=== PATIENT | male | born 1955 | race Caucasian/White ===

== ENCOUNTER 2020-07-31 15:39 | Inpatient (IN) ==
[2020-07-31] MEDS ORDERED: Acetaminophen 325 MG TABLET PO PRN (15:45)
[2020-07-31] MEDS: Melatonin 3 MG TABLET PO SCH (20:16)
[2020-07-31] MEDS: hydrALAZINE 25 MG TABLET PO SCH (20:16)
[2020-07-31] MEDS: WHEAT DEXTRIN PO SCH (20:24)
[2020-07-31] MEDS ORDERED: Insulin DETEMIR 100 UNIT/ML per UNIT SUBQ ONE (21:00)
[2020-08-01 08:52] LABS: Basophils # 0.1 K/mcL (0.0-0.2); Basophils % 0.8 %; Eosinophils # 0.5 K/mcL (0.0-0.6); Eosinophils % 5.4 %; Hematocrit 38.2 % (37.5-50.1); Hemoglobin 12.3 g/dL (12.9-16.9); Immature Granulocytes % 0.2 % (0-4); Lymphocytes # 2.2 K/mcL (0.6-4.6); Lymphocytes % 26.3 %; Mean Corpuscular HGB Conc 32.2 g/dL (31.6-35.5); Mean Corpuscular Hemoglobin 30.7 pg (28.0-33.3); Mean Corpuscular Volume 95.3 fL (83.0-100.0); Mean Platelet Volume 9.7 fL (9.4-12.4); Monocytes # 0.7 K/mcL (0.0-1.3); Monocytes % 8.1 %; Platelet Count 249 K/mcL (140-400); Red Blood Count 4.01 M/mcL (4.19-5.50); Red Cell Distribution Width 13.5 % (11.5-14.5); Segmented Neutrophils % 59.2 %; White Blood Count 8.4 K/mcL (4.3-11.1)
[2020-08-01 09:01] LABS: INR 1.2; Prothrombin Time 13.8 Seconds (9.4-12.1)
[2020-08-01 09:18] LABS: Albumin 4.1 g/dL (3.5-5.7); Albumin/Globulin Ratio 1.1 (1.1-2.2); Bilirubin,Total 0.4 mg/dL (0.3-1.0); Calcium 9.3 mg/dL (8.6-10.3); Globulin 3.9 g/dL (2.4-3.5); Potassium 4.8 mEq/L (3.5-5.1)
[2020-08-01] MEDS: Psyllium 1 PACKET POWD.PACK PO SCH ×3 (10:19→20:49)
[2020-08-01] MEDS: NIFEdipine XL (24 HR) 30 MG TAB.ER.24 PO SCH (10:20)
[2020-08-01] MEDS: Loratadine 10 MG TABLET PO SCH (10:20)
[2020-08-01] MEDS: Vitamin B Complex/Vit C/Vit E 1 EACH TABLET PO SCH (10:20)
[2020-08-01] MEDS: Aspirin Enteric Coated 325 MG Tablet PO SCH (10:20)
[2020-08-01] MEDS: Ascorbic Acid 500 MG TABLET PO SCH (10:20)
[2020-08-01] MEDS: WHEAT DEXTRIN PO SCH (10:21)
[2020-08-01] MEDS: hydrALAZINE 25 MG TABLET PO SCH ×3 (10:21→20:45)
[2020-08-01] MEDS: LANTHANUM 750 MG PO SCH ×2 (11:29→17:42)
[2020-08-01] MEDS ORDERED: Dextrose Gel 15 GM/37.5 ML TUBE PO PRN ×2 (14:08)
[2020-08-01] MEDS ORDERED: *HR* Dextrose 50 % in Water (Vial) 50 ML VIAL IVP PRN (14:08)
[2020-08-01] MEDS ORDERED: D5% in Water 1,000 ML IVC PRN (14:08)
[2020-08-01] MEDS: Furosemide 40 MG TABLET PO SCH (17:36)
[2020-08-01] MEDS: Insulin LISPRO 300 UNITS/3 ML VIAL SUBQ SCH (17:41)
[2020-08-01] MEDS: Melatonin 3 MG TABLET PO SCH (20:46)
[2020-08-01] MEDS: Insulin DETEMIR 100 UNIT/ML X5UNITS SUBQ SCH (20:59)
[2020-08-02] MEDS: Insulin LISPRO 300 UNITS/3 ML VIAL SUBQ SCH ×3 (10:04→17:11)
[2020-08-02] MEDS: Ascorbic Acid 500 MG TABLET PO SCH (10:07)
[2020-08-02] MEDS: hydrALAZINE 25 MG TABLET PO SCH ×3 (10:07→20:46)
[2020-08-02] MEDS: NIFEdipine XL (24 HR) 30 MG TAB.ER.24 PO SCH (10:07)
[2020-08-02] MEDS: Vitamin B Complex/Vit C/Vit E 1 EACH TABLET PO SCH (10:07)
[2020-08-02] MEDS: Psyllium 1 PACKET POWD.PACK PO SCH ×3 (10:07→20:48)
[2020-08-02] MEDS: Aspirin Enteric Coated 325 MG Tablet PO SCH (10:07)
[2020-08-02] MEDS: Loratadine 10 MG TABLET PO SCH (10:07)
[2020-08-02] MEDS: LANTHANUM 750 MG PO SCH ×3 (10:08→17:09)
[2020-08-02] MEDS: Furosemide 40 MG TABLET PO SCH (16:11)
[2020-08-02] MEDS: Melatonin 3 MG TABLET PO SCH (20:46)
[2020-08-02] MEDS: Insulin DETEMIR 100 UNIT/ML X5UNITS SUBQ SCH (20:48)
[2020-08-03] MEDS: NIFEdipine XL (24 HR) 30 MG TAB.ER.24 PO SCH (08:26)
[2020-08-03] MEDS: LANTHANUM 750 MG PO SCH ×3 (08:26→16:48)
[2020-08-03] MEDS: Psyllium 1 PACKET POWD.PACK PO SCH ×4 (08:26→20:29)
[2020-08-03] MEDS: Ascorbic Acid 500 MG TABLET PO SCH (08:27)
[2020-08-03] MEDS: Loratadine 10 MG TABLET PO SCH (08:27)
[2020-08-03] MEDS: Aspirin Enteric Coated 325 MG Tablet PO SCH (08:27)
[2020-08-03] MEDS: hydrALAZINE 25 MG TABLET PO SCH ×4 (08:27→20:28)
[2020-08-03] MEDS: Vitamin B Complex/Vit C/Vit E 1 EACH TABLET PO SCH (08:27)
[2020-08-03] MEDS: Insulin LISPRO 300 UNITS/3 ML VIAL SUBQ SCH ×3 (08:30→16:45)
[2020-08-03] MEDS: Melatonin 3 MG TABLET PO SCH (20:27)
[2020-08-03] MEDS: Insulin DETEMIR 100 UNIT/ML X5UNITS SUBQ SCH (20:39)
[2020-08-04] MEDS: Insulin LISPRO 300 UNITS/3 ML VIAL SUBQ SCH ×3 (07:28→16:47)
[2020-08-04] MEDS: Aspirin Enteric Coated 325 MG Tablet PO SCH (09:00)
[2020-08-04] MEDS: NIFEdipine XL (24 HR) 30 MG TAB.ER.24 PO SCH (09:00)
[2020-08-04] MEDS: Ascorbic Acid 500 MG TABLET PO SCH (09:00)
[2020-08-04] MEDS: Loratadine 10 MG TABLET PO SCH (09:00)
[2020-08-04] MEDS: Vitamin B Complex/Vit C/Vit E 1 EACH TABLET PO SCH (09:00)
[2020-08-04] MEDS: Psyllium 1 PACKET POWD.PACK PO SCH ×3 (09:00→20:41)
[2020-08-04] MEDS: hydrALAZINE 25 MG TABLET PO SCH ×3 (09:00→20:41)
[2020-08-04] MEDS: LANTHANUM 750 MG PO SCH ×3 (09:03→16:26)
[2020-08-04] MEDS: Furosemide 40 MG TABLET PO SCH (14:28)
[2020-08-04] MEDS: Melatonin 3 MG TABLET PO SCH (20:41)
[2020-08-04] MEDS: Insulin DETEMIR 100 UNIT/ML X5UNITS SUBQ SCH (20:42)
[2020-08-04] MEDS ORDERED: Insulin LISPRO 300 UNITS/3 ML VIAL SUBQ ONE (21:00)
[2020-08-05] MEDS: Insulin LISPRO 300 UNITS/3 ML VIAL SUBQ SCH ×3 (08:24→16:51)
[2020-08-05] MEDS: Loratadine 10 MG TABLET PO SCH (08:31)
[2020-08-05] MEDS: LANTHANUM 750 MG PO SCH ×3 (08:31→16:51)
[2020-08-05] MEDS: Aspirin Enteric Coated 325 MG Tablet PO SCH (08:32)
[2020-08-05] MEDS: Vitamin B Complex/Vit C/Vit E 1 EACH TABLET PO SCH (08:32)
[2020-08-05] MEDS: Ascorbic Acid 500 MG TABLET PO SCH (08:32)
[2020-08-05] MEDS: hydrALAZINE 25 MG TABLET PO SCH ×3 (16:50→20:46)
[2020-08-05] MEDS: Psyllium 1 PACKET POWD.PACK PO SCH ×3 (16:50→20:53)
[2020-08-05] MEDS: NIFEdipine XL (24 HR) 30 MG TAB.ER.24 PO SCH (16:51)
[2020-08-05] MEDS: *HR* Heparin 5,000 UNIT/ML VIAL SQ SCH (17:35)
[2020-08-05] MEDS: Melatonin 3 MG TABLET PO SCH (20:46)
[2020-08-05] MEDS: Insulin DETEMIR 100 UNIT/ML X5UNITS SUBQ SCH (21:06)
[2020-08-06] MEDS: *HR* Heparin 5,000 UNIT/ML VIAL SQ SCH ×2 (05:34→18:17)
[2020-08-06] MEDS: Insulin LISPRO 300 UNITS/3 ML VIAL SUBQ SCH ×3 (08:42→16:01)
[2020-08-06] MEDS: LANTHANUM 750 MG PO SCH ×3 (09:12→16:01)
[2020-08-06] MEDS: Aspirin Enteric Coated 325 MG Tablet PO SCH (09:12)
[2020-08-06] MEDS: NIFEdipine XL (24 HR) 30 MG TAB.ER.24 PO SCH (09:12)
[2020-08-06] MEDS: Psyllium 1 PACKET POWD.PACK PO SCH ×3 (09:12→20:22)
[2020-08-06] MEDS: Vitamin B Complex/Vit C/Vit E 1 EACH TABLET PO SCH (09:13)
[2020-08-06] MEDS: Loratadine 10 MG TABLET PO SCH (09:13)
[2020-08-06] MEDS: hydrALAZINE 25 MG TABLET PO SCH ×3 (09:13→20:23)
[2020-08-06] MEDS: Ascorbic Acid 500 MG TABLET PO SCH (09:14)
[2020-08-06] MEDS: Furosemide 40 MG TABLET PO SCH (16:01)
[2020-08-06] MEDS: Insulin DETEMIR 100 UNIT/ML X5UNITS SUBQ SCH (20:22)
[2020-08-06] MEDS: Melatonin 3 MG TABLET PO SCH (20:23)
[2020-08-07] MEDS: *HR* Heparin 5,000 UNIT/ML VIAL SQ SCH ×2 (05:28→18:01)
[2020-08-07 05:50] LABS: Basophils % 0.5 %; Eosinophils # 0.5 K/mcL (0.0-0.6); Hematocrit 31.2 % (37.5-50.1); Hemoglobin 10.1 g/dL (12.9-16.9); Immature Granulocytes % 0.3 % (0-4); Lymphocytes # 1.8 K/mcL (0.6-4.6); Lymphocytes % 22.8 %; Mean Corpuscular HGB Conc 32.4 g/dL (31.6-35.5); Mean Corpuscular Hemoglobin 30.8 pg (28.0-33.3); Mean Corpuscular Volume 95.1 fL (83.0-100.0); Mean Platelet Volume 9.6 fL (9.4-12.4); Monocytes # 0.7 K/mcL (0.0-1.3); Monocytes % 9.4 %; Neutrophils # 4.7 K/mcL (1.6-8.9); Platelet Count 241 K/mcL (140-400); Red Blood Count 3.28 M/mcL (4.19-5.50); White Blood Count 7.8 K/mcL (4.3-11.1)
[2020-08-07 06:07] LABS: Potassium 4.5 mEq/L (3.5-5.1)
[2020-08-07] MEDS: LANTHANUM 750 MG PO SCH ×3 (08:31→16:39)
[2020-08-07] MEDS: Vitamin B Complex/Vit C/Vit E 1 EACH TABLET PO SCH (08:31)
[2020-08-07] MEDS: Ascorbic Acid 500 MG TABLET PO SCH (08:31)
[2020-08-07] MEDS: Loratadine 10 MG TABLET PO SCH (08:31)
[2020-08-07] MEDS: hydrALAZINE 25 MG TABLET PO SCH ×4 (08:31→19:32)
[2020-08-07] MEDS: Psyllium 1 PACKET POWD.PACK PO SCH ×3 (08:31→19:32)
[2020-08-07] MEDS: NIFEdipine XL (24 HR) 30 MG TAB.ER.24 PO SCH (08:31)
[2020-08-07] MEDS: Aspirin Enteric Coated 325 MG Tablet PO SCH (08:31)
[2020-08-07] MEDS: Insulin LISPRO 300 UNITS/3 ML VIAL SUBQ SCH ×3 (08:32→16:39)
[2020-08-07] MEDS: Insulin DETEMIR 100 UNIT/ML X5UNITS SUBQ SCH (19:32)
[2020-08-07] MEDS: Melatonin 3 MG TABLET PO SCH (22:34)
[2020-08-08] MEDS: *HR* Heparin 5,000 UNIT/ML VIAL SQ SCH ×2 (06:39→17:05)
[2020-08-08] MEDS: Insulin LISPRO 300 UNITS/3 ML VIAL SUBQ SCH ×3 (08:18→16:16)
[2020-08-08] MEDS: Vitamin B Complex/Vit C/Vit E 1 EACH TABLET PO SCH (08:49)
[2020-08-08] MEDS: hydrALAZINE 25 MG TABLET PO SCH ×3 (08:49→21:15)
[2020-08-08] MEDS: Psyllium 1 PACKET POWD.PACK PO SCH ×3 (08:49→21:16)
[2020-08-08] MEDS: Aspirin Enteric Coated 325 MG Tablet PO SCH (08:49)
[2020-08-08] MEDS: Loratadine 10 MG TABLET PO SCH (08:49)
[2020-08-08] MEDS: LANTHANUM 750 MG PO SCH ×3 (08:49→16:18)
[2020-08-08] MEDS: Ascorbic Acid 500 MG TABLET PO SCH (08:50)
[2020-08-08] MEDS: NIFEdipine XL (24 HR) 30 MG TAB.ER.24 PO SCH (08:50)
[2020-08-08] MEDS: Furosemide 40 MG TABLET PO SCH (15:27)
[2020-08-08] MEDS: Melatonin 3 MG TABLET PO SCH (21:15)
[2020-08-08] MEDS: Insulin DETEMIR 100 UNIT/ML X5UNITS SUBQ SCH (21:18)
[2020-08-09] MEDS: *HR* Heparin 5,000 UNIT/ML VIAL SQ SCH ×2 (05:12→17:03)
[2020-08-09] MEDS: LANTHANUM 750 MG PO SCH ×3 (08:48→16:38)
[2020-08-09] MEDS: hydrALAZINE 25 MG TABLET PO SCH ×3 (08:51→20:00)
[2020-08-09] MEDS: Loratadine 10 MG TABLET PO SCH (08:51)
[2020-08-09] MEDS: Aspirin Enteric Coated 325 MG Tablet PO SCH (08:52)
[2020-08-09] MEDS: Psyllium 1 PACKET POWD.PACK PO SCH ×3 (08:52→19:56)
[2020-08-09] MEDS: Vitamin B Complex/Vit C/Vit E 1 EACH TABLET PO SCH (08:52)
[2020-08-09] MEDS: NIFEdipine XL (24 HR) 30 MG TAB.ER.24 PO SCH (08:52)
[2020-08-09] MEDS: Insulin LISPRO 300 UNITS/3 ML VIAL SUBQ SCH ×3 (08:52→16:37)
[2020-08-09] MEDS: Ascorbic Acid 500 MG TABLET PO SCH (08:52)
[2020-08-09] MEDS: Furosemide 40 MG TABLET PO SCH (14:30)
[2020-08-09] MEDS: Melatonin 3 MG TABLET PO SCH (19:59)
[2020-08-09] MEDS: Insulin DETEMIR 100 UNIT/ML X5UNITS SUBQ SCH (20:03)
[2020-08-10] MEDS: *HR* Heparin 5,000 UNIT/ML VIAL SQ SCH ×2 (04:54→17:01)
[2020-08-10] MEDS: Insulin LISPRO 300 UNITS/3 ML VIAL SUBQ SCH ×4 (08:40→22:19)
[2020-08-10] MEDS: Aspirin Enteric Coated 325 MG Tablet PO SCH (08:46)
[2020-08-10] MEDS: Vitamin B Complex/Vit C/Vit E 1 EACH TABLET PO SCH (08:46)
[2020-08-10] MEDS: Ascorbic Acid 500 MG TABLET PO SCH (08:47)
[2020-08-10] MEDS: Loratadine 10 MG TABLET PO SCH (08:47)
[2020-08-10] MEDS: NIFEdipine XL (24 HR) 30 MG TAB.ER.24 PO SCH (08:54)
[2020-08-10] MEDS: hydrALAZINE 25 MG TABLET PO SCH ×3 (08:58→21:45)
[2020-08-10] MEDS: Psyllium 1 PACKET POWD.PACK PO SCH ×3 (08:59→21:44)
[2020-08-10] MEDS: LANTHANUM 750 MG PO SCH ×3 (09:01→16:56)
[2020-08-10] MEDS: Insulin DETEMIR 100 UNIT/ML X5UNITS SUBQ SCH (21:43)
[2020-08-10] MEDS: Melatonin 3 MG TABLET PO SCH (21:45)
[2020-08-11] MEDS: *HR* Heparin 5,000 UNIT/ML VIAL SQ SCH ×2 (05:41→17:11)
[2020-08-11] MEDS: LANTHANUM 750 MG PO SCH ×3 (08:18→16:41)
[2020-08-11] MEDS: Vitamin B Complex/Vit C/Vit E 1 EACH TABLET PO SCH (08:19)
[2020-08-11] MEDS: Psyllium 1 PACKET POWD.PACK PO SCH ×3 (08:20→20:26)
[2020-08-11] MEDS: Aspirin Enteric Coated 325 MG Tablet PO SCH (08:20)
[2020-08-11] MEDS: Ascorbic Acid 500 MG TABLET PO SCH (08:20)
[2020-08-11] MEDS: hydrALAZINE 25 MG TABLET PO SCH ×3 (08:20→20:25)
[2020-08-11] MEDS: Loratadine 10 MG TABLET PO SCH (08:20)
[2020-08-11] MEDS: NIFEdipine XL (24 HR) 30 MG TAB.ER.24 PO SCH (08:20)
[2020-08-11] MEDS: Insulin LISPRO 300 UNITS/3 ML VIAL SUBQ SCH ×4 (08:21→20:42)
[2020-08-11] MEDS: Furosemide 40 MG TABLET PO SCH (15:21)
[2020-08-11] MEDS: Melatonin 3 MG TABLET PO SCH (20:25)
[2020-08-11] MEDS: Insulin DETEMIR 100 UNIT/ML X5UNITS SUBQ SCH (20:41)
[2020-08-12] MEDS: *HR* Heparin 5,000 UNIT/ML VIAL SQ SCH ×2 (05:57→17:33)
[2020-08-12] MEDS: Insulin LISPRO 300 UNITS/3 ML VIAL SUBQ SCH ×4 (07:37→19:47)
[2020-08-12 08:44] LABS: Basophils # 0.1 K/mcL (0.0-0.2); Basophils % 0.8 %; Eosinophils # 0.7 K/mcL (0.0-0.6); Eosinophils % 8.1 %; Hematocrit 33.3 % (37.5-50.1); Hemoglobin 10.6 g/dL (12.9-16.9); Immature Granulocytes % 0.3 % (0-4); Lymphocytes # 1.8 K/mcL (0.6-4.6); Lymphocytes % 22.5 %; Mean Corpuscular HGB Conc 31.8 g/dL (31.6-35.5); Mean Corpuscular Hemoglobin 30.5 pg (28.0-33.3); Mean Corpuscular Volume 95.7 fL (83.0-100.0); Mean Platelet Volume 9.6 fL (9.4-12.4); Monocytes # 0.6 K/mcL (0.0-1.3); Monocytes % 7.4 %; Neutrophils # 4.9 K/mcL (1.6-8.9); Platelet Count 261 K/mcL (140-400); Red Blood Count 3.48 M/mcL (4.19-5.50); Red Cell Distribution Width 13.2 % (11.5-14.5); Segmented Neutrophils % 60.9 %
[2020-08-12 08:57] LABS: Albumin 3.8 g/dL (3.5-5.7); Albumin/Globulin Ratio 1.1 (1.1-2.2); Bilirubin,Total 0.3 mg/dL (0.3-1.0); Calcium 9.6 mg/dL (8.6-10.3); Globulin 3.5 g/dL (2.4-3.5); Potassium 5.6 mEq/L (3.5-5.1); Total Protein 7.3 g/dL (6.4-8.9)
[2020-08-12] MEDS: Loratadine 10 MG TABLET PO SCH (09:00)
[2020-08-12] MEDS: Aspirin Enteric Coated 325 MG Tablet PO SCH (09:00)
[2020-08-12] MEDS: Psyllium 1 PACKET POWD.PACK PO SCH ×2 (09:01→17:34)
[2020-08-12] MEDS: Ascorbic Acid 500 MG TABLET PO SCH (09:01)
[2020-08-12] MEDS: NIFEdipine XL (24 HR) 30 MG TAB.ER.24 PO SCH (09:01)
[2020-08-12] MEDS: hydrALAZINE 25 MG TABLET PO SCH ×3 (09:01→19:46)
[2020-08-12] MEDS: LANTHANUM 750 MG PO SCH ×3 (09:01→17:34)
[2020-08-12] MEDS: Vitamin B Complex/Vit C/Vit E 1 EACH TABLET PO SCH (09:03)
[2020-08-12] MEDS: calcium polycarbophiL 625 MG TABLET PO SCH (19:46)
[2020-08-12] MEDS: Melatonin 3 MG TABLET PO SCH (19:47)
[2020-08-12] MEDS: Insulin DETEMIR 100 UNIT/ML X5UNITS SUBQ SCH (19:53)
[2020-08-13] MEDS: *HR* Heparin 5,000 UNIT/ML VIAL SQ SCH (06:19)
[2020-08-13 07:48] VITALS: BP 120/72
[2020-08-13] MEDS: Insulin LISPRO 300 UNITS/3 ML VIAL SUBQ SCH ×2 (08:32→12:31)
[2020-08-13] MEDS: Ascorbic Acid 500 MG TABLET PO SCH (08:36)
[2020-08-13] MEDS: LANTHANUM 750 MG PO SCH ×2 (08:36→12:42)
[2020-08-13] MEDS: NIFEdipine XL (24 HR) 30 MG TAB.ER.24 PO SCH (08:36)
[2020-08-13] MEDS: calcium polycarbophiL 625 MG TABLET PO SCH (08:36)
[2020-08-13] MEDS: Vitamin B Complex/Vit C/Vit E 1 EACH TABLET PO SCH (08:36)
[2020-08-13] MEDS: Aspirin Enteric Coated 325 MG Tablet PO SCH (08:36)
[2020-08-13] MEDS: Loratadine 10 MG TABLET PO SCH (08:37)
[2020-08-13] MEDS: hydrALAZINE 25 MG TABLET PO SCH (08:37)
== END 2020-08-13 14:57 | disposition home health service (06) | DRG 56 ==
LOC: INPPIK 18:29
PROVIDERS: ADMIT Family Medicine; ATTEND Family Medicine

== ENCOUNTER 2020-08-29 08:00 | Inpatient (IN) ==
[2020-08-29] MEDS ORDERED: Dextrose Gel 15 GM/37.5 ML TUBE PO PRN ×2 (13:33)
[2020-08-29] MEDS ORDERED: D5% in Water 1,000 ML IVC PRN (13:33)
[2020-08-29] MEDS ORDERED: *HR* Dextrose 50 % in Water (Vial) 50 ML VIAL IVP PRN (13:33)
[2020-08-29] MEDS: hydrALAZINE 25 MG TABLET PO SCH ×2 (14:45→20:55)
[2020-08-29] MEDS: Psyllium 1 PACKET POWD.PACK PO SCH ×2 (14:51→20:55)
[2020-08-29] MEDS: Insulin LISPRO 300 UNITS/3 ML VIAL SUBQ SCH ×2 (17:21→20:57)
[2020-08-29] MEDS: Melatonin 3 MG TABLET PO SCH (20:54)
[2020-08-29] MEDS: Insulin DETEMIR 100 UNIT/ML X5UNITS SUBQ SCH (20:56)
[2020-08-30 07:13] LABS: Basophils # 0.1 K/mcL (0.0-0.2); Basophils % 0.8 %; Eosinophils # 0.8 K/mcL (0.0-0.6); Eosinophils % 10.3 %; Hematocrit 34.2 % (37.5-50.1); Hemoglobin 11.1 g/dL (12.9-16.9); Immature Granulocytes % 0.3 % (0-4); Lymphocytes % 27.7 %; Mean Corpuscular HGB Conc 32.5 g/dL (31.6-35.5); Mean Corpuscular Hemoglobin 30.9 pg (28.0-33.3); Mean Corpuscular Volume 95.3 fL (83.0-100.0); Monocytes # 0.6 K/mcL (0.0-1.3); Monocytes % 7.7 %; Neutrophils # 3.9 K/mcL (1.6-8.9); Platelet Count 212 K/mcL (140-400); Red Blood Count 3.59 M/mcL (4.19-5.50); Segmented Neutrophils % 53.2 %; White Blood Count 7.3 K/mcL (4.3-11.1)
[2020-08-30 07:40] LABS: Calcium 9.4 mg/dL (8.6-10.3); Potassium 5.3 mEq/L (3.5-5.1)
[2020-08-30] MEDS: Insulin LISPRO 300 UNITS/3 ML VIAL SUBQ SCH ×4 (07:45→21:11)
[2020-08-30] MEDS: hydrALAZINE 25 MG TABLET PO SCH ×3 (08:05→21:10)
[2020-08-30] MEDS: Renal Vitamin 1 CAP CAPSULE PO SCH (08:06)
[2020-08-30] MEDS: Loratadine 10 MG TABLET PO SCH (08:06)
[2020-08-30] MEDS: Psyllium 1 PACKET POWD.PACK PO SCH ×3 (08:06→21:09)
[2020-08-30] MEDS: NIFEdipine XL (24 HR) 30 MG TAB.ER.24 PO SCH (08:06)
[2020-08-30] MEDS: Aspirin Enteric Coated 325 MG Tablet PO SCH (08:06)
[2020-08-30] MEDS: Ascorbic Acid 500 MG TABLET PO SCH (08:06)
[2020-08-30] MEDS: Furosemide 40 MG TABLET PO SCH (08:11)
[2020-08-30] MEDS: Insulin DETEMIR 100 UNIT/ML X5UNITS SUBQ SCH (21:09)
[2020-08-30] MEDS: Melatonin 3 MG TABLET PO SCH (21:10)
[2020-08-31] MEDS: hydrALAZINE 25 MG TABLET PO SCH ×3 (08:03→21:39)
[2020-08-31] MEDS: Renal Vitamin 1 CAP CAPSULE PO SCH (08:03)
[2020-08-31] MEDS: Aspirin Enteric Coated 325 MG Tablet PO SCH (08:04)
[2020-08-31] MEDS: NIFEdipine XL (24 HR) 30 MG TAB.ER.24 PO SCH (08:05)
[2020-08-31] MEDS: Ascorbic Acid 500 MG TABLET PO SCH (08:06)
[2020-08-31] MEDS: Loratadine 10 MG TABLET PO SCH (08:06)
[2020-08-31] MEDS: Insulin LISPRO 300 UNITS/3 ML VIAL SUBQ SCH ×4 (08:09→21:39)
[2020-08-31] MEDS: Psyllium 1 PACKET POWD.PACK PO SCH ×3 (08:10→22:08)
[2020-08-31] MEDS: Melatonin 3 MG TABLET PO SCH (21:39)
[2020-08-31] MEDS: Insulin DETEMIR 100 UNIT/ML X5UNITS SUBQ SCH (21:41)
[2020-09-01] MEDS: Furosemide 40 MG TABLET PO SCH (08:36)
[2020-09-01] MEDS: Psyllium 1 PACKET POWD.PACK PO SCH ×3 (08:36→20:15)
[2020-09-01] MEDS: Renal Vitamin 1 CAP CAPSULE PO SCH (08:36)
[2020-09-01] MEDS: hydrALAZINE 25 MG TABLET PO SCH ×3 (08:36→20:14)
[2020-09-01] MEDS: Loratadine 10 MG TABLET PO SCH (08:37)
[2020-09-01] MEDS: Ascorbic Acid 500 MG TABLET PO SCH (08:37)
[2020-09-01] MEDS: NIFEdipine XL (24 HR) 30 MG TAB.ER.24 PO SCH (08:37)
[2020-09-01] MEDS: Insulin LISPRO 300 UNITS/3 ML VIAL SUBQ SCH ×4 (08:37→20:15)
[2020-09-01] MEDS: Aspirin Enteric Coated 325 MG Tablet PO SCH (08:37)
[2020-09-01] MEDS: Melatonin 3 MG TABLET PO SCH (20:15)
[2020-09-01] MEDS: Insulin DETEMIR 100 UNIT/ML X5UNITS SUBQ SCH (20:15)
[2020-09-02] MEDS: Acetaminophen 325 MG TABLET PO PRN ×2 (01:36→20:57)
[2020-09-02] MEDS: Ascorbic Acid 500 MG TABLET PO SCH (08:29)
[2020-09-02] MEDS: Loratadine 10 MG TABLET PO SCH (08:29)
[2020-09-02] MEDS: Psyllium 1 PACKET POWD.PACK PO SCH ×3 (08:29→21:12)
[2020-09-02] MEDS: Renal Vitamin 1 CAP CAPSULE PO SCH (08:29)
[2020-09-02] MEDS: hydrALAZINE 25 MG TABLET PO SCH ×3 (08:30→21:13)
[2020-09-02] MEDS: NIFEdipine XL (24 HR) 30 MG TAB.ER.24 PO SCH (08:30)
[2020-09-02] MEDS: Aspirin Enteric Coated 325 MG Tablet PO SCH (08:31)
[2020-09-02] MEDS: Insulin LISPRO 300 UNITS/3 ML VIAL SUBQ SCH ×4 (08:49→21:12)
[2020-09-02] MEDS: Melatonin 3 MG TABLET PO SCH (20:57)
[2020-09-02] MEDS: Insulin DETEMIR 100 UNIT/ML X5UNITS SUBQ SCH (20:58)
[2020-09-03] MEDS: Insulin LISPRO 300 UNITS/3 ML VIAL SUBQ SCH ×4 (08:28→20:14)
[2020-09-03] MEDS: Aspirin Enteric Coated 325 MG Tablet PO SCH (08:39)
[2020-09-03] MEDS: Ascorbic Acid 500 MG TABLET PO SCH (08:39)
[2020-09-03] MEDS: Loratadine 10 MG TABLET PO SCH (08:39)
[2020-09-03] MEDS: hydrALAZINE 25 MG TABLET PO SCH ×3 (08:39→20:03)
[2020-09-03] MEDS: Renal Vitamin 1 CAP CAPSULE PO SCH (08:39)
[2020-09-03] MEDS: NIFEdipine XL (24 HR) 30 MG TAB.ER.24 PO SCH (08:39)
[2020-09-03] MEDS: Furosemide 40 MG TABLET PO SCH (08:41)
[2020-09-03] MEDS: Psyllium 1 PACKET POWD.PACK PO SCH ×3 (08:57→20:04)
[2020-09-03] MEDS: Melatonin 3 MG TABLET PO SCH (20:03)
[2020-09-03] MEDS: Insulin DETEMIR 100 UNIT/ML X5UNITS SUBQ SCH (20:05)
[2020-09-04 08:11] LABS: Basophils % 0.5 %; Eosinophils # 0.6 K/mcL (0.0-0.6); Eosinophils % 7.4 %; Hematocrit 30.1 % (37.5-50.1); Hemoglobin 9.8 g/dL (12.9-16.9); Immature Granulocytes % 0.4 % (0-4); Lymphocytes # 1.7 K/mcL (0.6-4.6); Lymphocytes % 21.4 %; Mean Corpuscular HGB Conc 32.6 g/dL (31.6-35.5); Mean Corpuscular Hemoglobin 31.1 pg (28.0-33.3); Mean Corpuscular Volume 95.6 fL (83.0-100.0); Mean Platelet Volume 10.1 fL (9.4-12.4); Monocytes # 0.7 K/mcL (0.0-1.3); Monocytes % 9.3 %; Neutrophils # 4.8 K/mcL (1.6-8.9); Platelet Count 239 K/mcL (140-400); Red Blood Count 3.15 M/mcL (4.19-5.50); Red Cell Distribution Width 12.7 % (11.5-14.5); White Blood Count 7.9 K/mcL (4.3-11.1)
[2020-09-04 08:32] LABS: Calcium 9.3 mg/dL (8.6-10.3); Potassium 5.5 mEq/L (3.5-5.1)
[2020-09-04] MEDS: Insulin LISPRO 300 UNITS/3 ML VIAL SUBQ SCH ×4 (08:50→21:05)
[2020-09-04] MEDS: Psyllium 1 PACKET POWD.PACK PO SCH ×3 (09:09→21:00)
[2020-09-04] MEDS: Aspirin Enteric Coated 325 MG Tablet PO SCH (09:09)
[2020-09-04] MEDS: hydrALAZINE 25 MG TABLET PO SCH ×3 (09:09→21:00)
[2020-09-04] MEDS: NIFEdipine XL (24 HR) 30 MG TAB.ER.24 PO SCH (09:09)
[2020-09-04] MEDS: Loratadine 10 MG TABLET PO SCH (09:09)
[2020-09-04] MEDS: Ascorbic Acid 500 MG TABLET PO SCH (09:09)
[2020-09-04] MEDS: Renal Vitamin 1 CAP CAPSULE PO SCH (09:09)
[2020-09-04] MEDS: Melatonin 3 MG TABLET PO SCH (21:00)
[2020-09-04] MEDS: Insulin DETEMIR 100 UNIT/ML X5UNITS SUBQ SCH (21:13)
[2020-09-05] MEDS: Insulin LISPRO 300 UNITS/3 ML VIAL SUBQ SCH ×4 (08:39→20:30)
[2020-09-05] MEDS: Psyllium 1 PACKET POWD.PACK PO SCH ×3 (08:40→20:30)
[2020-09-05] MEDS: hydrALAZINE 25 MG TABLET PO SCH ×3 (08:40→20:29)
[2020-09-05] MEDS: Renal Vitamin 1 CAP CAPSULE PO SCH (08:40)
[2020-09-05] MEDS: Furosemide 40 MG TABLET PO SCH (08:40)
[2020-09-05] MEDS: Aspirin Enteric Coated 325 MG Tablet PO SCH (08:40)
[2020-09-05] MEDS: Loratadine 10 MG TABLET PO SCH (08:40)
[2020-09-05] MEDS: Ascorbic Acid 500 MG TABLET PO SCH (08:40)
[2020-09-05] MEDS: NIFEdipine XL (24 HR) 30 MG TAB.ER.24 PO SCH (08:40)
[2020-09-05] MEDS: Melatonin 3 MG TABLET PO SCH (20:29)
[2020-09-05] MEDS: Insulin DETEMIR 100 UNIT/ML X5UNITS SUBQ SCH (20:31)
[2020-09-06 07:50] LABS: Calcium 9.3 mg/dL (8.6-10.3); Potassium 5.2 mEq/L (3.5-5.1)
[2020-09-06] MEDS: Insulin LISPRO 300 UNITS/3 ML VIAL SUBQ SCH ×4 (08:53→21:28)
[2020-09-06] MEDS: Ascorbic Acid 500 MG TABLET PO SCH (08:54)
[2020-09-06] MEDS: Loratadine 10 MG TABLET PO SCH (08:54)
[2020-09-06] MEDS: Renal Vitamin 1 CAP CAPSULE PO SCH (08:54)
[2020-09-06] MEDS: NIFEdipine XL (24 HR) 30 MG TAB.ER.24 PO SCH (08:54)
[2020-09-06] MEDS: Aspirin Enteric Coated 325 MG Tablet PO SCH (08:54)
[2020-09-06] MEDS: hydrALAZINE 25 MG TABLET PO SCH ×3 (08:55→21:14)
[2020-09-06] MEDS: Psyllium 1 PACKET POWD.PACK PO SCH ×3 (08:55→21:28)
[2020-09-06] MEDS: Furosemide 40 MG TABLET PO SCH (11:37)
[2020-09-06] MEDS: Melatonin 3 MG TABLET PO SCH (21:14)
[2020-09-06] MEDS: Insulin DETEMIR 100 UNIT/ML X5UNITS SUBQ SCH (21:15)
[2020-09-07] MEDS: Insulin LISPRO 300 UNITS/3 ML VIAL SUBQ SCH ×4 (07:30→21:11)
[2020-09-07] MEDS: Psyllium 1 PACKET POWD.PACK PO SCH ×3 (08:17→21:12)
[2020-09-07] MEDS: Renal Vitamin 1 CAP CAPSULE PO SCH (08:18)
[2020-09-07] MEDS: Ascorbic Acid 500 MG TABLET PO SCH (08:18)
[2020-09-07] MEDS: Aspirin Enteric Coated 325 MG Tablet PO SCH (08:18)
[2020-09-07] MEDS: Loratadine 10 MG TABLET PO SCH (08:18)
[2020-09-07] MEDS: hydrALAZINE 25 MG TABLET PO SCH ×3 (08:19→21:10)
[2020-09-07] MEDS: NIFEdipine XL (24 HR) 30 MG TAB.ER.24 PO SCH (08:20)
[2020-09-07] MEDS: Melatonin 3 MG TABLET PO SCH (21:11)
[2020-09-07] MEDS: Insulin DETEMIR 100 UNIT/ML X5UNITS SUBQ SCH (21:11)
[2020-09-08] MEDS: Insulin LISPRO 300 UNITS/3 ML VIAL SUBQ SCH ×4 (07:23→20:20)
[2020-09-08] MEDS: Renal Vitamin 1 CAP CAPSULE PO SCH (09:07)
[2020-09-08] MEDS: Ascorbic Acid 500 MG TABLET PO SCH (09:07)
[2020-09-08] MEDS: Aspirin Enteric Coated 325 MG Tablet PO SCH (09:07)
[2020-09-08] MEDS: NIFEdipine XL (24 HR) 30 MG TAB.ER.24 PO SCH (09:07)
[2020-09-08] MEDS: hydrALAZINE 25 MG TABLET PO SCH ×3 (09:07→20:17)
[2020-09-08] MEDS: Loratadine 10 MG TABLET PO SCH (09:07)
[2020-09-08] MEDS: Furosemide 40 MG TABLET PO SCH (09:08)
[2020-09-08] MEDS: Psyllium 1 PACKET POWD.PACK PO SCH ×3 (09:09→20:20)
[2020-09-08] MEDS: Melatonin 3 MG TABLET PO SCH (20:17)
[2020-09-08] MEDS: Insulin DETEMIR 100 UNIT/ML X5UNITS SUBQ SCH (20:18)
[2020-09-09] MEDS: Insulin LISPRO 300 UNITS/3 ML VIAL SUBQ SCH ×4 (07:52→21:29)
[2020-09-09] MEDS: hydrALAZINE 25 MG TABLET PO SCH ×3 (08:47→21:11)
[2020-09-09] MEDS: NIFEdipine XL (24 HR) 30 MG TAB.ER.24 PO SCH (08:47)
[2020-09-09] MEDS: Psyllium 1 PACKET POWD.PACK PO SCH ×3 (08:48→21:12)
[2020-09-09] MEDS: Loratadine 10 MG TABLET PO SCH (08:51)
[2020-09-09] MEDS: Ascorbic Acid 500 MG TABLET PO SCH (08:51)
[2020-09-09] MEDS: Aspirin Enteric Coated 325 MG Tablet PO SCH (08:51)
[2020-09-09] MEDS: Renal Vitamin 1 CAP CAPSULE PO SCH (08:52)
[2020-09-09] MEDS: Melatonin 3 MG TABLET PO SCH (21:11)
[2020-09-09] MEDS: Insulin DETEMIR 100 UNIT/ML X5UNITS SUBQ SCH (21:12)
[2020-09-10] MEDS: Psyllium 1 PACKET POWD.PACK PO SCH ×3 (08:23→22:02)
[2020-09-10] MEDS: NIFEdipine XL (24 HR) 30 MG TAB.ER.24 PO SCH (08:23)
[2020-09-10] MEDS: Renal Vitamin 1 CAP CAPSULE PO SCH (08:23)
[2020-09-10] MEDS: Aspirin Enteric Coated 325 MG Tablet PO SCH (08:23)
[2020-09-10] MEDS: Ascorbic Acid 500 MG TABLET PO SCH (08:24)
[2020-09-10] MEDS: hydrALAZINE 25 MG TABLET PO SCH ×3 (08:24→22:02)
[2020-09-10] MEDS: Loratadine 10 MG TABLET PO SCH (08:24)
[2020-09-10] MEDS: Insulin LISPRO 300 UNITS/3 ML VIAL SUBQ SCH ×4 (08:24→22:13)
[2020-09-10] MEDS: Furosemide 40 MG TABLET PO SCH (08:25)
[2020-09-10] MEDS: Melatonin 3 MG TABLET PO SCH (22:02)
[2020-09-10] MEDS: Insulin DETEMIR 100 UNIT/ML X5UNITS SUBQ SCH (22:21)
[2020-09-11] MEDS: hydrALAZINE 25 MG TABLET PO SCH ×3 (08:39→21:04)
[2020-09-11] MEDS: Aspirin Enteric Coated 325 MG Tablet PO SCH (08:39)
[2020-09-11] MEDS: Psyllium 1 PACKET POWD.PACK PO SCH ×3 (08:39→21:05)
[2020-09-11] MEDS: NIFEdipine XL (24 HR) 30 MG TAB.ER.24 PO SCH (08:39)
[2020-09-11] MEDS: Insulin LISPRO 300 UNITS/3 ML VIAL SUBQ SCH ×4 (08:40→21:00)
[2020-09-11] MEDS: Renal Vitamin 1 CAP CAPSULE PO SCH (08:40)
[2020-09-11] MEDS: Ascorbic Acid 500 MG TABLET PO SCH (08:40)
[2020-09-11] MEDS: Loratadine 10 MG TABLET PO SCH (08:40)
[2020-09-11] MEDS: Melatonin 3 MG TABLET PO SCH (21:04)
[2020-09-11] MEDS: Insulin DETEMIR 100 UNIT/ML X5UNITS SUBQ SCH (21:12)
[2020-09-12 06:52] VITALS: BP 167/66
[2020-09-12] MEDS: Insulin LISPRO 300 UNITS/3 ML VIAL SUBQ SCH ×2 (07:52→11:59)
[2020-09-12] MEDS: NIFEdipine XL (24 HR) 30 MG TAB.ER.24 PO SCH (08:46)
[2020-09-12] MEDS: hydrALAZINE 25 MG TABLET PO SCH (08:46)
[2020-09-12] MEDS: Loratadine 10 MG TABLET PO SCH (08:46)
[2020-09-12] MEDS: Aspirin Enteric Coated 325 MG Tablet PO SCH (08:46)
[2020-09-12] MEDS: Ascorbic Acid 500 MG TABLET PO SCH (08:47)
[2020-09-12] MEDS: Renal Vitamin 1 CAP CAPSULE PO SCH (08:47)
[2020-09-12] MEDS: Furosemide 40 MG TABLET PO SCH (08:47)
[2020-09-12] MEDS: Psyllium 1 PACKET POWD.PACK PO SCH (08:47)
== END 2020-09-12 12:35 | disposition home health service (06) | DRG 56 ==
LOC: INPPIK 12:27
PROVIDERS: ADMIT Family Medicine; ATTEND Family Medicine

== ENCOUNTER 2021-07-17 18:50 | Inpatient (IN) ==
[2021-07-17] MEDS: hydrALAZINE 25 MG TABLET PO SCH (23:27)
[2021-07-17] MEDS: Melatonin 3 MG TABLET PO SCH (23:27)
[2021-07-17] MEDS: metroNIDAZOLE 500 MG TABLET PO SCH (23:28)
[2021-07-17] MEDS: Folic Acid 1 MG TABLET PO SCH (23:28)
[2021-07-18 07:35] LABS: Basophils # 0.1 K/mcL (0.0-0.2); Basophils % 0.5 %; Eosinophils # 0.5 K/mcL (0.0-0.6); Eosinophils % 3.8 %; Hematocrit 31.2 % (37.5-50.1); Hemoglobin 9.6 g/dL (12.9-16.9); Immature Granulocytes % 1.3 % (0-4); Lymphocytes # 2.3 K/mcL (0.6-4.6); Lymphocytes % 16.8 %; Mean Corpuscular HGB Conc 30.8 g/dL (31.6-35.5); Mean Corpuscular Hemoglobin 29.9 pg (28.0-33.3); Mean Corpuscular Volume 97.2 fL (83.0-100.0); Monocytes # 0.9 K/mcL (0.0-1.3); Monocytes % 6.8 %; Neutrophils # 9.6 K/mcL (1.6-8.9); Platelet Count 338 K/mcL (140-400); Red Blood Count 3.21 M/mcL (4.19-5.50); Red Cell Distribution Width 12.5 % (11.5-14.5); Segmented Neutrophils % 70.8 %; White Blood Count 13.6 K/mcL (4.3-11.1)
[2021-07-18 07:53] LABS: Calcium 8.9 mg/dL (8.6-10.3); Potassium 4.6 mEq/L (3.5-5.1)
[2021-07-18] MEDS: Folic Acid 1 MG TABLET PO SCH ×2 (10:11→21:15)
[2021-07-18] MEDS: Renal Vitamin 1 CAP CAPSULE PO SCH (10:11)
[2021-07-18] MEDS: Ascorbic Acid 500 MG TABLET PO SCH (10:11)
[2021-07-18] MEDS: metroNIDAZOLE 500 MG TABLET PO SCH ×3 (10:11→21:15)
[2021-07-18] MEDS: Aspirin Enteric Coated 325 MG Tablet PO SCH (10:11)
[2021-07-18] MEDS: hydrALAZINE 25 MG TABLET PO SCH ×3 (10:11→21:15)
[2021-07-18] MEDS: Loratadine 10 MG TABLET PO SCH (10:11)
[2021-07-18] MEDS: Furosemide 40 MG TABLET PO SCH (10:20)
[2021-07-18] MEDS ORDERED: D5% in Water 1,000 ML IVC PRN (17:03)
[2021-07-18] MEDS ORDERED: *HR* Dextrose 50 % in Water (Syg) 50 ML SYRINGE IVP PRN (17:03)
[2021-07-18] MEDS ORDERED: Dextrose Gel 15 GM/37.5 ML TUBE PO PRN ×2 (17:03)
[2021-07-18] MEDS: Insulin DETEMIR 100 UNIT/ML X5UNITS SUBQ SCH (21:15)
[2021-07-18] MEDS: Insulin LISPRO 300 UNITS/3 ML VIAL SUBQ SCH (21:15)
[2021-07-18] MEDS: Melatonin 3 MG TABLET PO SCH (21:15)
[2021-07-19] MEDS: metroNIDAZOLE 500 MG TABLET PO SCH ×3 (09:02→20:27)
[2021-07-19] MEDS: Renal Vitamin 1 CAP CAPSULE PO SCH (09:02)
[2021-07-19] MEDS: Ascorbic Acid 500 MG TABLET PO SCH (09:02)
[2021-07-19] MEDS: Insulin LISPRO 300 UNITS/3 ML VIAL SUBQ SCH ×4 (09:02→20:29)
[2021-07-19] MEDS: Loratadine 10 MG TABLET PO SCH (09:03)
[2021-07-19] MEDS: hydrALAZINE 25 MG TABLET PO SCH ×3 (09:03→20:27)
[2021-07-19] MEDS: Aspirin Enteric Coated 325 MG Tablet PO SCH (09:03)
[2021-07-19] MEDS: Folic Acid 1 MG TABLET PO SCH ×2 (09:03→20:27)
[2021-07-19] MEDS: Acetaminophen 325 MG TABLET PO PRN (17:35)
[2021-07-19] MEDS: Melatonin 3 MG TABLET PO SCH (20:28)
[2021-07-19] MEDS: Insulin DETEMIR 100 UNIT/ML X5UNITS SUBQ SCH (20:28)
[2021-07-20] MEDS: Ascorbic Acid 500 MG TABLET PO SCH (07:55)
[2021-07-20] MEDS: hydrALAZINE 25 MG TABLET PO SCH ×3 (07:55→21:04)
[2021-07-20] MEDS: Insulin LISPRO 300 UNITS/3 ML VIAL SUBQ SCH ×4 (07:55→21:04)
[2021-07-20] MEDS: Folic Acid 1 MG TABLET PO SCH ×2 (07:55→21:03)
[2021-07-20] MEDS: Aspirin Enteric Coated 325 MG Tablet PO SCH (07:55)
[2021-07-20] MEDS: Loratadine 10 MG TABLET PO SCH (07:55)
[2021-07-20] MEDS: metroNIDAZOLE 500 MG TABLET PO SCH ×3 (07:55→21:04)
[2021-07-20] MEDS: Renal Vitamin 1 CAP CAPSULE PO SCH (07:55)
[2021-07-20] MEDS: Furosemide 40 MG TABLET PO SCH (07:59)
[2021-07-20] MEDS: Melatonin 3 MG TABLET PO SCH (21:04)
[2021-07-20] MEDS: Insulin DETEMIR 100 UNIT/ML X5UNITS SUBQ SCH (21:05)
[2021-07-21] MEDS: Renal Vitamin 1 CAP CAPSULE PO SCH (08:25)
[2021-07-21] MEDS: Folic Acid 1 MG TABLET PO SCH ×2 (08:25→21:38)
[2021-07-21] MEDS: metroNIDAZOLE 500 MG TABLET PO SCH ×3 (08:25→21:38)
[2021-07-21] MEDS: Aspirin Enteric Coated 325 MG Tablet PO SCH (08:26)
[2021-07-21] MEDS: hydrALAZINE 25 MG TABLET PO SCH ×3 (08:26→21:38)
[2021-07-21] MEDS: Ascorbic Acid 500 MG TABLET PO SCH (08:26)
[2021-07-21] MEDS: Loratadine 10 MG TABLET PO SCH (08:26)
[2021-07-21] MEDS: Insulin LISPRO 300 UNITS/3 ML VIAL SUBQ SCH ×4 (08:27→21:39)
[2021-07-21] MEDS: Melatonin 3 MG TABLET PO SCH (21:38)
[2021-07-21] MEDS: Insulin DETEMIR 100 UNIT/ML X5UNITS SUBQ SCH (21:43)
[2021-07-22] MEDS: metroNIDAZOLE 500 MG TABLET PO SCH ×3 (08:59→23:44)
[2021-07-22] MEDS: Folic Acid 1 MG TABLET PO SCH ×2 (09:00→23:44)
[2021-07-22] MEDS: hydrALAZINE 25 MG TABLET PO SCH ×3 (09:00→23:45)
[2021-07-22] MEDS: Loratadine 10 MG TABLET PO SCH (09:00)
[2021-07-22] MEDS: Renal Vitamin 1 CAP CAPSULE PO SCH (09:00)
[2021-07-22] MEDS: Ascorbic Acid 500 MG TABLET PO SCH (09:00)
[2021-07-22] MEDS: Aspirin Enteric Coated 325 MG Tablet PO SCH (09:00)
[2021-07-22] MEDS: Furosemide 40 MG TABLET PO SCH (09:02)
[2021-07-22] MEDS: Insulin LISPRO 300 UNITS/3 ML VIAL SUBQ SCH ×4 (09:06→23:45)
[2021-07-22] MEDS: *HR* Heparin 5,000 UNIT/ML VIAL SQ SCH (17:43)
[2021-07-22] MEDS: Insulin DETEMIR 100 UNIT/ML X5UNITS SUBQ SCH (23:45)
[2021-07-22] MEDS: Melatonin 3 MG TABLET PO SCH (23:45)
[2021-07-23] MEDS: *HR* Heparin 5,000 UNIT/ML VIAL SQ SCH ×2 (06:39→16:07)
[2021-07-23] MEDS: Insulin LISPRO 300 UNITS/3 ML VIAL SUBQ SCH ×4 (07:24→22:20)
[2021-07-23] MEDS: Ascorbic Acid 500 MG TABLET PO SCH (07:41)
[2021-07-23] MEDS: Folic Acid 1 MG TABLET PO SCH ×2 (07:41→22:17)
[2021-07-23] MEDS: Aspirin Enteric Coated 325 MG Tablet PO SCH (07:41)
[2021-07-23] MEDS: Loratadine 10 MG TABLET PO SCH (07:41)
[2021-07-23] MEDS: Renal Vitamin 1 CAP CAPSULE PO SCH (07:41)
[2021-07-23] MEDS: hydrALAZINE 25 MG TABLET PO SCH ×3 (07:41→22:17)
[2021-07-23] MEDS: metroNIDAZOLE 500 MG TABLET PO SCH ×3 (07:41→22:17)
[2021-07-23] MEDS: Melatonin 3 MG TABLET PO SCH (22:16)
[2021-07-23] MEDS: Insulin DETEMIR 100 UNIT/ML X5UNITS SUBQ SCH (22:19)
[2021-07-24] MEDS: *HR* Heparin 5,000 UNIT/ML VIAL SQ SCH ×2 (06:23→18:28)
[2021-07-24] MEDS: hydrALAZINE 25 MG TABLET PO SCH ×3 (10:32→20:24)
[2021-07-24] MEDS: Aspirin Enteric Coated 325 MG Tablet PO SCH (10:32)
[2021-07-24] MEDS: Folic Acid 1 MG TABLET PO SCH ×2 (10:32→20:25)
[2021-07-24] MEDS: Ascorbic Acid 500 MG TABLET PO SCH (10:32)
[2021-07-24] MEDS: Loratadine 10 MG TABLET PO SCH (10:32)
[2021-07-24] MEDS: metroNIDAZOLE 500 MG TABLET PO SCH ×3 (10:32→20:24)
[2021-07-24] MEDS: Insulin LISPRO 300 UNITS/3 ML VIAL SUBQ SCH ×4 (10:33→20:30)
[2021-07-24] MEDS: Furosemide 40 MG TABLET PO SCH (10:36)
[2021-07-24] MEDS: Renal Vitamin 1 CAP CAPSULE PO SCH (10:37)
[2021-07-24] MEDS: Melatonin 3 MG TABLET PO SCH (20:24)
[2021-07-24] MEDS: Insulin DETEMIR 100 UNIT/ML X5UNITS SUBQ SCH (20:25)
[2021-07-25] MEDS: *HR* Heparin 5,000 UNIT/ML VIAL SQ SCH ×2 (06:22→17:13)
[2021-07-25] MEDS: Aspirin Enteric Coated 325 MG Tablet PO SCH (08:20)
[2021-07-25] MEDS: Renal Vitamin 1 CAP CAPSULE PO SCH (08:20)
[2021-07-25] MEDS: metroNIDAZOLE 500 MG TABLET PO SCH ×3 (08:20→21:02)
[2021-07-25] MEDS: Ascorbic Acid 500 MG TABLET PO SCH (08:20)
[2021-07-25] MEDS: Folic Acid 1 MG TABLET PO SCH ×2 (08:20→20:59)
[2021-07-25] MEDS: Loratadine 10 MG TABLET PO SCH (08:20)
[2021-07-25] MEDS: hydrALAZINE 25 MG TABLET PO SCH ×3 (08:20→21:01)
[2021-07-25] MEDS: Insulin LISPRO 300 UNITS/3 ML VIAL SUBQ SCH ×4 (08:32→21:00)
[2021-07-25] MEDS: Furosemide 40 MG TABLET PO SCH (08:32)
[2021-07-25] MEDS: Melatonin 3 MG TABLET PO SCH (20:59)
[2021-07-25] MEDS: Insulin DETEMIR 100 UNIT/ML X5UNITS SUBQ SCH (21:01)
[2021-07-26] MEDS: Acetaminophen 325 MG TABLET PO PRN ×2 (02:06→20:46)
[2021-07-26] MEDS: *HR* Heparin 5,000 UNIT/ML VIAL SQ SCH ×2 (05:39→16:49)
[2021-07-26] MEDS: Insulin LISPRO 300 UNITS/3 ML VIAL SUBQ SCH ×4 (07:59→20:41)
[2021-07-26] MEDS: hydrALAZINE 25 MG TABLET PO SCH ×3 (08:00→20:41)
[2021-07-26] MEDS: Renal Vitamin 1 CAP CAPSULE PO SCH (08:00)
[2021-07-26] MEDS: Loratadine 10 MG TABLET PO SCH (08:00)
[2021-07-26] MEDS: metroNIDAZOLE 500 MG TABLET PO SCH ×3 (08:01→20:41)
[2021-07-26] MEDS: Aspirin Enteric Coated 325 MG Tablet PO SCH (08:01)
[2021-07-26] MEDS: Ascorbic Acid 500 MG TABLET PO SCH (08:01)
[2021-07-26] MEDS: Folic Acid 1 MG TABLET PO SCH ×2 (08:01→20:41)
[2021-07-26] MEDS: Insulin DETEMIR 100 UNIT/ML X5UNITS SUBQ SCH (20:41)
[2021-07-26] MEDS: Melatonin 3 MG TABLET PO SCH (20:41)
[2021-07-27] MEDS: *HR* Heparin 5,000 UNIT/ML VIAL SQ SCH ×2 (06:09→17:09)
[2021-07-27] MEDS: Insulin LISPRO 300 UNITS/3 ML VIAL SUBQ SCH ×4 (07:43→21:25)
[2021-07-27] MEDS: metroNIDAZOLE 500 MG TABLET PO SCH ×3 (07:56→21:24)
[2021-07-27] MEDS: Ascorbic Acid 500 MG TABLET PO SCH (07:57)
[2021-07-27] MEDS: Renal Vitamin 1 CAP CAPSULE PO SCH (07:57)
[2021-07-27] MEDS: hydrALAZINE 25 MG TABLET PO SCH ×3 (07:57→21:24)
[2021-07-27] MEDS: Aspirin Enteric Coated 325 MG Tablet PO SCH (07:58)
[2021-07-27] MEDS: Folic Acid 1 MG TABLET PO SCH ×2 (07:58→21:24)
[2021-07-27] MEDS: Loratadine 10 MG TABLET PO SCH (07:58)
[2021-07-27] MEDS: Furosemide 40 MG TABLET PO SCH (08:18)
[2021-07-27] MEDS: Insulin DETEMIR 100 UNIT/ML X5UNITS SUBQ SCH (21:24)
[2021-07-27] MEDS: Melatonin 3 MG TABLET PO SCH (21:24)
[2021-07-27] MEDS: Acetaminophen 325 MG TABLET PO PRN (21:30)
[2021-07-28] MEDS: *HR* Heparin 5,000 UNIT/ML VIAL SQ SCH ×2 (06:08→17:44)
[2021-07-28] MEDS: metroNIDAZOLE 500 MG TABLET PO SCH ×3 (07:57→21:48)
[2021-07-28] MEDS: Insulin LISPRO 300 UNITS/3 ML VIAL SUBQ SCH ×4 (07:57→20:35)
[2021-07-28] MEDS: Aspirin Enteric Coated 325 MG Tablet PO SCH (07:57)
[2021-07-28] MEDS: Loratadine 10 MG TABLET PO SCH (07:58)
[2021-07-28] MEDS: Folic Acid 1 MG TABLET PO SCH ×2 (07:58→21:48)
[2021-07-28] MEDS: hydrALAZINE 25 MG TABLET PO SCH ×3 (07:58→21:48)
[2021-07-28] MEDS: Ascorbic Acid 500 MG TABLET PO SCH (07:58)
[2021-07-28] MEDS: Renal Vitamin 1 CAP CAPSULE PO SCH (07:58)
[2021-07-28] MEDS: Insulin DETEMIR 100 UNIT/ML X5UNITS SUBQ SCH (21:48)
[2021-07-28] MEDS: Melatonin 3 MG TABLET PO SCH (21:48)
[2021-07-28] MEDS: Acetaminophen 325 MG TABLET PO PRN (22:04)
[2021-07-29] MEDS: *HR* Heparin 5,000 UNIT/ML VIAL SQ SCH ×2 (06:24→18:00)
[2021-07-29] MEDS: Insulin LISPRO 300 UNITS/3 ML VIAL SUBQ SCH ×4 (08:01→23:47)
[2021-07-29] MEDS: hydrALAZINE 25 MG TABLET PO SCH ×3 (08:01→20:42)
[2021-07-29] MEDS: Aspirin Enteric Coated 325 MG Tablet PO SCH (08:01)
[2021-07-29] MEDS: metroNIDAZOLE 500 MG TABLET PO SCH ×3 (08:01→20:43)
[2021-07-29] MEDS: Renal Vitamin 1 CAP CAPSULE PO SCH (08:01)
[2021-07-29] MEDS: Folic Acid 1 MG TABLET PO SCH ×2 (08:01→20:43)
[2021-07-29] MEDS: Ascorbic Acid 500 MG TABLET PO SCH (08:02)
[2021-07-29] MEDS: Loratadine 10 MG TABLET PO SCH (08:02)
[2021-07-29] MEDS: Furosemide 40 MG TABLET PO SCH (12:37)
[2021-07-29] MEDS: Melatonin 3 MG TABLET PO SCH (20:42)
[2021-07-29] MEDS: Insulin DETEMIR 100 UNIT/ML X5UNITS SUBQ SCH (20:42)
[2021-07-29] MEDS: Acetaminophen 325 MG TABLET PO PRN (20:43)
[2021-07-30] MEDS: *HR* Heparin 5,000 UNIT/ML VIAL SQ SCH ×2 (06:11→17:51)
[2021-07-30] MEDS: Insulin LISPRO 300 UNITS/3 ML VIAL SUBQ SCH ×4 (08:05→22:27)
[2021-07-30] MEDS: Renal Vitamin 1 CAP CAPSULE PO SCH (08:40)
[2021-07-30] MEDS: Loratadine 10 MG TABLET PO SCH (08:41)
[2021-07-30] MEDS: metroNIDAZOLE 500 MG TABLET PO SCH ×3 (08:41→21:04)
[2021-07-30] MEDS: Aspirin Enteric Coated 325 MG Tablet PO SCH (08:41)
[2021-07-30] MEDS: Ascorbic Acid 500 MG TABLET PO SCH (08:41)
[2021-07-30] MEDS: Folic Acid 1 MG TABLET PO SCH ×2 (08:41→21:04)
[2021-07-30] MEDS: hydrALAZINE 25 MG TABLET PO SCH ×3 (08:42→21:05)
[2021-07-30 18:35] LABS: Basophils # 0.1 K/mcL (0.0-0.2); Basophils % 0.8 %; Eosinophils # 0.5 K/mcL (0.0-0.6); Hematocrit 32.8 % (37.5-50.1); Hemoglobin 9.9 g/dL (12.9-16.9); Immature Granulocytes % 0.4 % (0-4); Lymphocytes # 1.3 K/mcL (0.6-4.6); Lymphocytes % 16.8 %; Mean Corpuscular HGB Conc 30.2 g/dL (31.6-35.5); Mean Corpuscular Hemoglobin 29.6 pg (28.0-33.3); Mean Corpuscular Volume 98.2 fL (83.0-100.0); Mean Platelet Volume 9.5 fL (9.4-12.4); Monocytes # 0.5 K/mcL (0.0-1.3); Neutrophils # 5.3 K/mcL (1.6-8.9); Platelet Count 260 K/mcL (140-400); Red Blood Count 3.34 M/mcL (4.19-5.50); Red Cell Distribution Width 13.4 % (11.5-14.5); White Blood Count 7.7 K/mcL (4.3-11.1)
[2021-07-30] MEDS: Melatonin 3 MG TABLET PO SCH (21:05)
[2021-07-30] MEDS: Insulin DETEMIR 100 UNIT/ML X5UNITS SUBQ SCH (21:05)
[2021-07-30] MEDS: Acetaminophen 325 MG TABLET PO PRN (22:29)
[2021-07-31] MEDS: *HR* Heparin 5,000 UNIT/ML VIAL SQ SCH ×2 (05:27→17:00)
[2021-07-31] MEDS: Insulin LISPRO 300 UNITS/3 ML VIAL SUBQ SCH ×4 (09:33→20:21)
[2021-07-31] MEDS: Renal Vitamin 1 CAP CAPSULE PO SCH (09:34)
[2021-07-31] MEDS: Loratadine 10 MG TABLET PO SCH (09:35)
[2021-07-31] MEDS: Aspirin Enteric Coated 325 MG Tablet PO SCH (09:35)
[2021-07-31] MEDS: Folic Acid 1 MG TABLET PO SCH ×2 (09:35→20:13)
[2021-07-31] MEDS: metroNIDAZOLE 500 MG TABLET PO SCH ×3 (09:35→20:13)
[2021-07-31] MEDS: hydrALAZINE 25 MG TABLET PO SCH ×3 (09:35→20:13)
[2021-07-31] MEDS: Ascorbic Acid 500 MG TABLET PO SCH (09:35)
[2021-07-31] MEDS: Furosemide 40 MG TABLET PO SCH (09:40)
[2021-07-31] MEDS: Melatonin 3 MG TABLET PO SCH (20:14)
[2021-07-31] MEDS: Insulin DETEMIR 100 UNIT/ML X5UNITS SUBQ SCH (20:22)
[2021-08-01] MEDS: *HR* Heparin 5,000 UNIT/ML VIAL SQ SCH ×2 (05:19→18:01)
[2021-08-01] MEDS: Insulin LISPRO 300 UNITS/3 ML VIAL SUBQ SCH ×4 (10:01→20:45)
[2021-08-01] MEDS: hydrALAZINE 25 MG TABLET PO SCH ×3 (10:02→20:45)
[2021-08-01] MEDS: metroNIDAZOLE 500 MG TABLET PO SCH ×3 (10:02→20:45)
[2021-08-01] MEDS: Ascorbic Acid 500 MG TABLET PO SCH (10:02)
[2021-08-01] MEDS: Folic Acid 1 MG TABLET PO SCH ×2 (10:02→20:45)
[2021-08-01] MEDS: Renal Vitamin 1 CAP CAPSULE PO SCH (10:02)
[2021-08-01] MEDS: Loratadine 10 MG TABLET PO SCH (10:02)
[2021-08-01] MEDS: Aspirin Enteric Coated 325 MG Tablet PO SCH (10:02)
[2021-08-01] MEDS: Furosemide 40 MG TABLET PO SCH (10:05)
[2021-08-01] MEDS: Insulin DETEMIR 100 UNIT/ML X5UNITS SUBQ SCH (20:44)
[2021-08-01] MEDS: Melatonin 3 MG TABLET PO SCH (20:45)
[2021-08-02] MEDS: *HR* Heparin 5,000 UNIT/ML VIAL SQ SCH ×2 (05:34→16:59)
[2021-08-02] MEDS: Loratadine 10 MG TABLET PO SCH (08:45)
[2021-08-02] MEDS: Renal Vitamin 1 CAP CAPSULE PO SCH (08:45)
[2021-08-02] MEDS: metroNIDAZOLE 500 MG TABLET PO SCH ×3 (08:45→22:13)
[2021-08-02] MEDS: Aspirin Enteric Coated 325 MG Tablet PO SCH (08:45)
[2021-08-02] MEDS: Ascorbic Acid 500 MG TABLET PO SCH (08:45)
[2021-08-02] MEDS: Insulin LISPRO 300 UNITS/3 ML VIAL SUBQ SCH ×4 (08:46→22:13)
[2021-08-02] MEDS: Folic Acid 1 MG TABLET PO SCH ×2 (08:46→22:12)
[2021-08-02] MEDS: hydrALAZINE 25 MG TABLET PO SCH ×3 (08:46→22:14)
[2021-08-02] MEDS: Melatonin 3 MG TABLET PO SCH (22:10)
[2021-08-02] MEDS: Insulin DETEMIR 100 UNIT/ML X5UNITS SUBQ SCH (22:10)
[2021-08-02] MEDS: Acetaminophen 325 MG TABLET PO PRN (22:11)
[2021-08-03] MEDS: *HR* Heparin 5,000 UNIT/ML VIAL SQ SCH ×2 (06:10→17:03)
[2021-08-03] MEDS: Insulin LISPRO 300 UNITS/3 ML VIAL SUBQ SCH ×4 (08:18→21:16)
[2021-08-03] MEDS: metroNIDAZOLE 500 MG TABLET PO SCH ×3 (08:26→21:23)
[2021-08-03] MEDS: hydrALAZINE 25 MG TABLET PO SCH ×3 (08:26→21:22)
[2021-08-03] MEDS: Renal Vitamin 1 CAP CAPSULE PO SCH (08:26)
[2021-08-03] MEDS: Aspirin Enteric Coated 325 MG Tablet PO SCH (08:27)
[2021-08-03] MEDS: Ascorbic Acid 500 MG TABLET PO SCH (08:27)
[2021-08-03] MEDS: Loratadine 10 MG TABLET PO SCH (08:27)
[2021-08-03] MEDS: Folic Acid 1 MG TABLET PO SCH ×2 (08:27→21:22)
[2021-08-03] MEDS: Furosemide 40 MG TABLET PO SCH (08:29)
[2021-08-03] MEDS: Insulin DETEMIR 100 UNIT/ML X5UNITS SUBQ SCH (21:22)
[2021-08-03] MEDS: Melatonin 3 MG TABLET PO SCH (21:22)
[2021-08-04] MEDS: *HR* Heparin 5,000 UNIT/ML VIAL SQ SCH ×2 (06:17→20:59)
[2021-08-04] MEDS: Insulin LISPRO 300 UNITS/3 ML VIAL SUBQ SCH ×4 (07:22→21:07)
[2021-08-04] MEDS: Ascorbic Acid 500 MG TABLET PO SCH (08:42)
[2021-08-04] MEDS: Loratadine 10 MG TABLET PO SCH (08:42)
[2021-08-04] MEDS: Folic Acid 1 MG TABLET PO SCH ×2 (08:42→21:00)
[2021-08-04] MEDS: Renal Vitamin 1 CAP CAPSULE PO SCH (08:42)
[2021-08-04] MEDS: hydrALAZINE 25 MG TABLET PO SCH ×3 (08:42→21:00)
[2021-08-04] MEDS: metroNIDAZOLE 500 MG TABLET PO SCH ×3 (08:43→21:00)
[2021-08-04] MEDS: Aspirin Enteric Coated 325 MG Tablet PO SCH (08:43)
[2021-08-04] MEDS: Melatonin 3 MG TABLET PO SCH (21:00)
[2021-08-04] MEDS: Insulin DETEMIR 100 UNIT/ML X5UNITS SUBQ SCH (21:06)
[2021-08-05] MEDS: *HR* Heparin 5,000 UNIT/ML VIAL SQ SCH ×2 (05:28→17:33)
[2021-08-05] MEDS: Insulin LISPRO 300 UNITS/3 ML VIAL SUBQ SCH ×4 (07:53→21:27)
[2021-08-05] MEDS: metroNIDAZOLE 500 MG TABLET PO SCH ×3 (08:38→21:27)
[2021-08-05] MEDS: Renal Vitamin 1 CAP CAPSULE PO SCH (08:38)
[2021-08-05] MEDS: Aspirin Enteric Coated 325 MG Tablet PO SCH (08:38)
[2021-08-05] MEDS: Folic Acid 1 MG TABLET PO SCH ×2 (08:38→21:27)
[2021-08-05] MEDS: Ascorbic Acid 500 MG TABLET PO SCH (08:39)
[2021-08-05] MEDS: hydrALAZINE 25 MG TABLET PO SCH ×3 (08:39→21:27)
[2021-08-05] MEDS: Loratadine 10 MG TABLET PO SCH (08:39)
[2021-08-05] MEDS: Furosemide 40 MG TABLET PO SCH (08:41)
[2021-08-05] MEDS: Insulin DETEMIR 100 UNIT/ML X5UNITS SUBQ SCH (21:27)
[2021-08-05] MEDS: Melatonin 3 MG TABLET PO SCH (21:27)
[2021-08-05] MEDS: Acetaminophen 325 MG TABLET PO PRN (21:35)
[2021-08-06] MEDS: *HR* Heparin 5,000 UNIT/ML VIAL SQ SCH ×2 (05:44→22:12)
[2021-08-06] MEDS: Insulin LISPRO 300 UNITS/3 ML VIAL SUBQ SCH ×4 (08:03→21:20)
[2021-08-06] MEDS: Aspirin Enteric Coated 325 MG Tablet PO SCH (08:38)
[2021-08-06] MEDS: Loratadine 10 MG TABLET PO SCH (08:38)
[2021-08-06] MEDS: Folic Acid 1 MG TABLET PO SCH ×2 (08:38→21:20)
[2021-08-06] MEDS: Ascorbic Acid 500 MG TABLET PO SCH (08:38)
[2021-08-06] MEDS: Renal Vitamin 1 CAP CAPSULE PO SCH (08:39)
[2021-08-06] MEDS: metroNIDAZOLE 500 MG TABLET PO SCH ×3 (08:39→21:19)
[2021-08-06] MEDS: hydrALAZINE 25 MG TABLET PO SCH ×3 (08:40→21:20)
[2021-08-06] MEDS: Melatonin 3 MG TABLET PO SCH (21:20)
[2021-08-06] MEDS: Insulin DETEMIR 100 UNIT/ML X5UNITS SUBQ SCH (21:21)
[2021-08-06] MEDS: Acetaminophen 325 MG TABLET PO PRN (21:30)
[2021-08-07] MEDS: *HR* Heparin 5,000 UNIT/ML VIAL SQ SCH ×2 (06:18→16:41)
[2021-08-07] MEDS: Insulin LISPRO 300 UNITS/3 ML VIAL SUBQ SCH ×4 (07:52→20:39)
[2021-08-07] MEDS: Renal Vitamin 1 CAP CAPSULE PO SCH (09:52)
[2021-08-07] MEDS: metroNIDAZOLE 500 MG TABLET PO SCH ×3 (09:53→20:38)
[2021-08-07] MEDS: Ascorbic Acid 500 MG TABLET PO SCH (09:53)
[2021-08-07] MEDS: Aspirin Enteric Coated 325 MG Tablet PO SCH (09:53)
[2021-08-07] MEDS: hydrALAZINE 25 MG TABLET PO SCH ×3 (09:53→20:38)
[2021-08-07] MEDS: Folic Acid 1 MG TABLET PO SCH ×2 (09:53→20:39)
[2021-08-07] MEDS: Loratadine 10 MG TABLET PO SCH (09:53)
[2021-08-07] MEDS: Furosemide 40 MG TABLET PO SCH (09:54)
[2021-08-07] MEDS ORDERED: Vancomycin 500 MG in 0.9 % Sodium Chloride Mini Bag 100 ML IVPB ONE (12:00)
[2021-08-07] MEDS: Insulin DETEMIR 100 UNIT/ML X5UNITS SUBQ SCH (20:39)
[2021-08-07] MEDS: Melatonin 3 MG TABLET PO SCH (22:57)
[2021-08-07] MEDS: Acetaminophen 325 MG TABLET PO PRN (22:57)
[2021-08-08] MEDS: *HR* Heparin 5,000 UNIT/ML VIAL SQ SCH ×2 (06:00→17:30)
[2021-08-08] MEDS: Insulin LISPRO 300 UNITS/3 ML VIAL SUBQ SCH ×4 (08:03→19:47)
[2021-08-08] MEDS: hydrALAZINE 25 MG TABLET PO SCH ×3 (08:11→19:46)
[2021-08-08] MEDS: Loratadine 10 MG TABLET PO SCH (08:11)
[2021-08-08] MEDS: Folic Acid 1 MG TABLET PO SCH ×2 (08:11→19:46)
[2021-08-08] MEDS: Ascorbic Acid 500 MG TABLET PO SCH (08:11)
[2021-08-08] MEDS: Renal Vitamin 1 CAP CAPSULE PO SCH (08:12)
[2021-08-08] MEDS: metroNIDAZOLE 500 MG TABLET PO SCH ×3 (08:12→19:45)
[2021-08-08] MEDS: Aspirin Enteric Coated 325 MG Tablet PO SCH (08:12)
[2021-08-08] MEDS: Furosemide 40 MG TABLET PO SCH (08:13)
[2021-08-08] MEDS: Melatonin 3 MG TABLET PO SCH (19:46)
[2021-08-08] MEDS: Insulin DETEMIR 100 UNIT/ML X5UNITS SUBQ SCH (19:47)
[2021-08-08] MEDS: Acetaminophen 325 MG TABLET PO PRN (22:44)
[2021-08-09] MEDS: *HR* Heparin 5,000 UNIT/ML VIAL SQ SCH ×2 (05:39→16:48)
[2021-08-09] MEDS: Insulin LISPRO 300 UNITS/3 ML VIAL SUBQ SCH ×4 (07:38→19:48)
[2021-08-09] MEDS: metroNIDAZOLE 500 MG TABLET PO SCH ×3 (09:26→19:47)
[2021-08-09] MEDS: Aspirin Enteric Coated 325 MG Tablet PO SCH (09:26)
[2021-08-09] MEDS: Ascorbic Acid 500 MG TABLET PO SCH (09:26)
[2021-08-09] MEDS: Renal Vitamin 1 CAP CAPSULE PO SCH (09:26)
[2021-08-09] MEDS: Loratadine 10 MG TABLET PO SCH (09:26)
[2021-08-09] MEDS: Folic Acid 1 MG TABLET PO SCH ×2 (09:26→19:47)
[2021-08-09] MEDS: hydrALAZINE 25 MG TABLET PO SCH ×3 (09:27→19:47)
[2021-08-09 17:05] LABS: BUN/Creatinine Ratio 8 (6-26); Blood Urea Nitrogen 35 mg/dL (8-23); Calcium 9.3 mg/dL (8.6-10.3); Carbon Dioxide 28 mEq/L (23-29); Chloride 97 mEq/L (98-107); Glucose 157 mg/dL (70-105); Osmolality,Calculated 291 (280-300); Potassium 3.9 mEq/L (3.5-5.1); Sodium 135 mEq/L (136-145); eGFR For African Americans 17 (> 60); eGFR For Non-African Americans 14 (> 60)
[2021-08-09 17:23] LABS: Basophils % 0.6 %; Eosinophils # 0.4 K/mcL (0.0-0.6); Eosinophils % 6.9 %; Hematocrit 32.4 % (37.5-50.1); Hemoglobin 10.3 g/dL (12.9-16.9); Immature Granulocytes % 0.2 % (0-4); Lymphocytes % 16.6 %; Mean Corpuscular HGB Conc 31.8 g/dL (31.6-35.5); Mean Corpuscular Volume 94.5 fL (83.0-100.0); Mean Platelet Volume 8.9 fL (9.4-12.4); Monocytes # 0.6 K/mcL (0.0-1.3); Monocytes % 9.5 %; Neutrophils # 4.1 K/mcL (1.6-8.9); Platelet Count 228 K/mcL (140-400); Red Blood Count 3.43 M/mcL (4.19-5.50); Red Cell Distribution Width 13.5 % (11.5-14.5); Segmented Neutrophils % 66.2 %; White Blood Count 6.2 K/mcL (4.3-11.1)
[2021-08-09] MEDS: Melatonin 3 MG TABLET PO SCH (19:48)
[2021-08-09] MEDS: Insulin DETEMIR 100 UNIT/ML X5UNITS SUBQ SCH (19:48)
[2021-08-09] MEDS: Acetaminophen 325 MG TABLET PO PRN (19:52)
[2021-08-09 21:33] LABS: C-Reactive Protein < 5 mg/L (Less than 10)
[2021-08-10] MEDS: *HR* Heparin 5,000 UNIT/ML VIAL SQ SCH ×2 (05:29→17:04)
[2021-08-10] MEDS: Insulin LISPRO 300 UNITS/3 ML VIAL SUBQ SCH ×4 (08:17→20:39)
[2021-08-10] MEDS: Loratadine 10 MG TABLET PO SCH (09:35)
[2021-08-10] MEDS: Ascorbic Acid 500 MG TABLET PO SCH (09:35)
[2021-08-10] MEDS: hydrALAZINE 25 MG TABLET PO SCH ×3 (09:35→21:11)
[2021-08-10] MEDS: Aspirin Enteric Coated 325 MG Tablet PO SCH (09:35)
[2021-08-10] MEDS: Renal Vitamin 1 CAP CAPSULE PO SCH (09:35)
[2021-08-10] MEDS: metroNIDAZOLE 500 MG TABLET PO SCH ×3 (09:36→21:10)
[2021-08-10] MEDS: Folic Acid 1 MG TABLET PO SCH ×2 (09:36→21:10)
[2021-08-10] MEDS: Furosemide 40 MG TABLET PO SCH (09:43)
[2021-08-10] MEDS: Melatonin 3 MG TABLET PO SCH (21:10)
[2021-08-10] MEDS: SODIUM ZIRCONIUM CYCLOSILICATE 5 GM POWD.PACK PO SCH (21:11)
[2021-08-10] MEDS: Insulin DETEMIR 100 UNIT/ML X5UNITS SUBQ SCH (21:14)
[2021-08-10] MEDS: Acetaminophen 325 MG TABLET PO PRN (21:30)
[2021-08-11] MEDS: *HR* Heparin 5,000 UNIT/ML VIAL SQ SCH ×2 (05:35→18:02)
[2021-08-11] MEDS: Insulin LISPRO 300 UNITS/3 ML VIAL SUBQ SCH ×5 (08:25→20:27)
[2021-08-11] MEDS: hydrALAZINE 25 MG TABLET PO SCH ×3 (08:25→20:26)
[2021-08-11] MEDS: Ascorbic Acid 500 MG TABLET PO SCH (09:35)
[2021-08-11] MEDS: Folic Acid 1 MG TABLET PO SCH ×2 (09:35→20:25)
[2021-08-11] MEDS: metroNIDAZOLE 500 MG TABLET PO SCH ×3 (09:35→20:26)
[2021-08-11] MEDS: Renal Vitamin 1 CAP CAPSULE PO SCH (09:35)
[2021-08-11] MEDS: Aspirin Enteric Coated 325 MG Tablet PO SCH (09:35)
[2021-08-11] MEDS: Loratadine 10 MG TABLET PO SCH (09:35)
[2021-08-11] MEDS: SODIUM ZIRCONIUM CYCLOSILICATE 5 GM POWD.PACK PO SCH ×2 (09:35→20:33)
[2021-08-11] MEDS ORDERED: Vancomycin 500 MG in 0.9 % Sodium Chloride Mini Bag 100 ML IVPB ONE (18:00)
[2021-08-11] MEDS: Melatonin 3 MG TABLET PO SCH (20:24)
[2021-08-11] MEDS: Insulin DETEMIR 100 UNIT/ML X5UNITS SUBQ SCH (20:26)
[2021-08-12] MEDS: *HR* Heparin 5,000 UNIT/ML VIAL SQ SCH ×2 (05:29→17:07)
[2021-08-12] MEDS: Insulin LISPRO 300 UNITS/3 ML VIAL SUBQ SCH ×4 (07:45→21:24)
[2021-08-12] MEDS: Aspirin Enteric Coated 325 MG Tablet PO SCH (08:25)
[2021-08-12] MEDS: Ascorbic Acid 500 MG TABLET PO SCH (08:25)
[2021-08-12] MEDS: metroNIDAZOLE 500 MG TABLET PO SCH ×3 (08:25→21:21)
[2021-08-12] MEDS: Renal Vitamin 1 CAP CAPSULE PO SCH (08:26)
[2021-08-12] MEDS: Folic Acid 1 MG TABLET PO SCH ×2 (08:26→21:24)
[2021-08-12] MEDS: hydrALAZINE 25 MG TABLET PO SCH ×3 (08:26→21:21)
[2021-08-12] MEDS: Loratadine 10 MG TABLET PO SCH (08:27)
[2021-08-12] MEDS: Furosemide 40 MG TABLET PO SCH (08:33)
[2021-08-12] MEDS: Acetaminophen 325 MG TABLET PO PRN (21:22)
[2021-08-12] MEDS: Melatonin 3 MG TABLET PO SCH (21:22)
[2021-08-12] MEDS: Insulin DETEMIR 100 UNIT/ML X5UNITS SUBQ SCH (21:25)
[2021-08-13] MEDS: *HR* Heparin 5,000 UNIT/ML VIAL SQ SCH ×2 (06:29→16:42)
[2021-08-13] MEDS: Insulin LISPRO 300 UNITS/3 ML VIAL SUBQ SCH ×4 (07:32→20:30)
[2021-08-13] MEDS: Folic Acid 1 MG TABLET PO SCH ×2 (07:48→20:29)
[2021-08-13] MEDS: Renal Vitamin 1 CAP CAPSULE PO SCH (07:49)
[2021-08-13] MEDS: Aspirin Enteric Coated 325 MG Tablet PO SCH (07:49)
[2021-08-13] MEDS: metroNIDAZOLE 500 MG TABLET PO SCH ×3 (07:49→20:29)
[2021-08-13] MEDS: Ascorbic Acid 500 MG TABLET PO SCH (07:49)
[2021-08-13] MEDS: Loratadine 10 MG TABLET PO SCH (07:50)
[2021-08-13] MEDS: hydrALAZINE 25 MG TABLET PO SCH ×3 (07:53→20:29)
[2021-08-13] MEDS ORDERED: Vancomycin 500 MG in 0.9 % Sodium Chloride Mini Bag 100 ML IVPB ONE (18:00)
[2021-08-13] MEDS: Melatonin 3 MG TABLET PO SCH (20:29)
[2021-08-13] MEDS: Insulin DETEMIR 100 UNIT/ML X5UNITS SUBQ SCH (20:30)
[2021-08-14] MEDS: *HR* Heparin 5,000 UNIT/ML VIAL SQ SCH ×2 (05:51→17:32)
[2021-08-14] MEDS: Insulin LISPRO 300 UNITS/3 ML VIAL SUBQ SCH ×4 (08:00→20:46)
[2021-08-14] MEDS: Aspirin Enteric Coated 325 MG Tablet PO SCH (09:11)
[2021-08-14] MEDS: Ascorbic Acid 500 MG TABLET PO SCH (09:11)
[2021-08-14] MEDS: Folic Acid 1 MG TABLET PO SCH ×2 (09:11→20:48)
[2021-08-14] MEDS: metroNIDAZOLE 500 MG TABLET PO SCH ×3 (09:11→20:48)
[2021-08-14] MEDS: hydrALAZINE 25 MG TABLET PO SCH ×3 (09:11→20:48)
[2021-08-14] MEDS: Renal Vitamin 1 CAP CAPSULE PO SCH (09:11)
[2021-08-14] MEDS: Loratadine 10 MG TABLET PO SCH (09:11)
[2021-08-14] MEDS: Furosemide 40 MG TABLET PO SCH (09:14)
[2021-08-14] MEDS: Insulin DETEMIR 100 UNIT/ML X5UNITS SUBQ SCH (20:46)
[2021-08-14] MEDS: Melatonin 3 MG TABLET PO SCH (20:47)
[2021-08-15] MEDS: *HR* Heparin 5,000 UNIT/ML VIAL SQ SCH ×2 (06:35→17:18)
[2021-08-15] MEDS: Insulin LISPRO 300 UNITS/3 ML VIAL SUBQ SCH ×4 (08:53→20:51)
[2021-08-15] MEDS: metroNIDAZOLE 500 MG TABLET PO SCH ×3 (09:10→20:50)
[2021-08-15] MEDS: hydrALAZINE 25 MG TABLET PO SCH ×3 (09:10→20:49)
[2021-08-15] MEDS: Aspirin Enteric Coated 325 MG Tablet PO SCH (09:10)
[2021-08-15] MEDS: Loratadine 10 MG TABLET PO SCH (09:10)
[2021-08-15] MEDS: Renal Vitamin 1 CAP CAPSULE PO SCH (09:10)
[2021-08-15] MEDS: Folic Acid 1 MG TABLET PO SCH ×2 (09:11→20:50)
[2021-08-15] MEDS: Ascorbic Acid 500 MG TABLET PO SCH (09:11)
[2021-08-15] MEDS: Furosemide 40 MG TABLET PO SCH (09:15)
[2021-08-15] MEDS: Insulin DETEMIR 100 UNIT/ML X5UNITS SUBQ SCH (20:49)
[2021-08-15] MEDS: Melatonin 3 MG TABLET PO SCH (20:51)
[2021-08-16] MEDS: *HR* Heparin 5,000 UNIT/ML VIAL SQ SCH ×2 (05:43→16:47)
[2021-08-16] MEDS: Insulin LISPRO 300 UNITS/3 ML VIAL SUBQ SCH ×4 (09:10→21:45)
[2021-08-16] MEDS: Renal Vitamin 1 CAP CAPSULE PO SCH (09:11)
[2021-08-16] MEDS: Loratadine 10 MG TABLET PO SCH (09:11)
[2021-08-16] MEDS: hydrALAZINE 25 MG TABLET PO SCH ×3 (09:11→21:44)
[2021-08-16] MEDS: Ascorbic Acid 500 MG TABLET PO SCH (09:11)
[2021-08-16] MEDS: Aspirin Enteric Coated 325 MG Tablet PO SCH (09:11)
[2021-08-16] MEDS: Folic Acid 1 MG TABLET PO SCH ×2 (09:11→21:38)
[2021-08-16] MEDS: metroNIDAZOLE 500 MG TABLET PO SCH ×3 (09:11→21:38)
[2021-08-16] MEDS ORDERED: Vancomycin 500 MG in 0.9 % Sodium Chloride Mini Bag 100 ML IVPB ONE (17:00)
[2021-08-16] MEDS: Melatonin 3 MG TABLET PO SCH (21:38)
[2021-08-16] MEDS: Acetaminophen 325 MG TABLET PO PRN (21:44)
[2021-08-16] MEDS: Insulin DETEMIR 100 UNIT/ML X5UNITS SUBQ SCH (21:44)
[2021-08-17] MEDS: *HR* Heparin 5,000 UNIT/ML VIAL SQ SCH ×2 (07:26→16:55)
[2021-08-17] MEDS: Ascorbic Acid 500 MG TABLET PO SCH (07:27)
[2021-08-17] MEDS: hydrALAZINE 25 MG TABLET PO SCH ×3 (07:27→22:44)
[2021-08-17] MEDS: Folic Acid 1 MG TABLET PO SCH ×2 (07:27→22:42)
[2021-08-17] MEDS: Loratadine 10 MG TABLET PO SCH (07:27)
[2021-08-17] MEDS: Renal Vitamin 1 CAP CAPSULE PO SCH (07:27)
[2021-08-17] MEDS: Insulin LISPRO 300 UNITS/3 ML VIAL SUBQ SCH ×4 (07:27→22:46)
[2021-08-17] MEDS: Aspirin Enteric Coated 325 MG Tablet PO SCH (07:27)
[2021-08-17] MEDS: metroNIDAZOLE 500 MG TABLET PO SCH ×3 (07:27→22:43)
[2021-08-17] MEDS: Furosemide 40 MG TABLET PO SCH (07:30)
[2021-08-17] MEDS: Acetaminophen 325 MG TABLET PO PRN (22:44)
[2021-08-17] MEDS: Insulin DETEMIR 100 UNIT/ML X5UNITS SUBQ SCH (22:45)
[2021-08-17] MEDS: Melatonin 3 MG TABLET PO SCH (22:45)
[2021-08-18] MEDS: Ascorbic Acid 500 MG TABLET PO SCH (08:46)
[2021-08-18] MEDS: Loratadine 10 MG TABLET PO SCH (08:47)
[2021-08-18] MEDS: metroNIDAZOLE 500 MG TABLET PO SCH ×3 (08:47→22:35)
[2021-08-18] MEDS: Renal Vitamin 1 CAP CAPSULE PO SCH (08:48)
[2021-08-18] MEDS: Folic Acid 1 MG TABLET PO SCH ×2 (08:48→22:35)
[2021-08-18] MEDS: hydrALAZINE 25 MG TABLET PO SCH ×3 (08:48→22:35)
[2021-08-18] MEDS: Aspirin Enteric Coated 325 MG Tablet PO SCH (08:48)
[2021-08-18] MEDS: *HR* Heparin 5,000 UNIT/ML VIAL SQ SCH ×2 (08:49→17:15)
[2021-08-18] MEDS: Insulin DETEMIR 100 UNIT/ML X5UNITS SUBQ SCH ×2 (08:49→22:35)
[2021-08-18] MEDS: Insulin LISPRO 300 UNITS/3 ML VIAL SUBQ SCH ×4 (08:50→22:28)
[2021-08-18 18:21] LABS: Hematocrit 29.1 % (37.5-50.1); Hemoglobin 9.2 g/dL (12.9-16.9); Mean Corpuscular HGB Conc 31.6 g/dL (31.6-35.5); Mean Corpuscular Hemoglobin 30.7 pg (28.0-33.3); Mean Platelet Volume 10.4 fL (9.4-12.4); Platelet Count 220 K/mcL (140-400); Red Cell Distribution Width 13.2 % (11.5-14.5); White Blood Count 6.2 K/mcL (4.3-11.1)
[2021-08-18 18:39] LABS: BUN/Creatinine Ratio 9 (6-26); Blood Urea Nitrogen 69 mg/dL (8-23); Calcium 8.7 mg/dL (8.6-10.3); Carbon Dioxide 21 mEq/L (23-29); Chloride 97 mEq/L (98-107); Glucose 231 mg/dL (70-105); Osmolality,Calculated 305 (280-300); Potassium 5.7 mEq/L (3.5-5.1); Sodium 134 mEq/L (136-145); eGFR For African Americans 8 (> 60); eGFR For Non-African Americans 7 (> 60)
[2021-08-18 21:02] LABS: C-Reactive Protein < 5 mg/L (Less than 10)
[2021-08-18] MEDS: Melatonin 3 MG TABLET PO SCH (22:35)
[2021-08-18] MEDS: Acetaminophen 325 MG TABLET PO PRN (22:36)
[2021-08-19] MEDS: *HR* Heparin 5,000 UNIT/ML VIAL SQ SCH ×2 (07:40→16:49)
[2021-08-19] MEDS: metroNIDAZOLE 500 MG TABLET PO SCH ×3 (08:41→22:31)
[2021-08-19] MEDS: Folic Acid 1 MG TABLET PO SCH ×2 (08:41→22:32)
[2021-08-19] MEDS: Ascorbic Acid 500 MG TABLET PO SCH (08:42)
[2021-08-19] MEDS: Insulin DETEMIR 100 UNIT/ML X5UNITS SUBQ SCH ×2 (08:42→22:30)
[2021-08-19] MEDS: Renal Vitamin 1 CAP CAPSULE PO SCH (08:42)
[2021-08-19] MEDS: Insulin LISPRO 300 UNITS/3 ML VIAL SUBQ SCH ×4 (08:42→21:19)
[2021-08-19] MEDS: hydrALAZINE 25 MG TABLET PO SCH ×3 (08:42→22:32)
[2021-08-19] MEDS: Aspirin Enteric Coated 325 MG Tablet PO SCH (08:42)
[2021-08-19] MEDS: Loratadine 10 MG TABLET PO SCH (08:42)
[2021-08-19] MEDS: Furosemide 40 MG TABLET PO SCH (08:45)
[2021-08-19] MEDS ORDERED: Vancomycin 500 MG in 0.9 % Sodium Chloride Mini Bag 100 ML IVPB ONE (15:00)
[2021-08-19] MEDS: Acetaminophen 325 MG TABLET PO PRN (22:31)
[2021-08-19] MEDS: Melatonin 3 MG TABLET PO SCH (22:32)
[2021-08-20] MEDS: *HR* Heparin 5,000 UNIT/ML VIAL SQ SCH ×2 (06:32→17:09)
[2021-08-20] MEDS: Insulin LISPRO 300 UNITS/3 ML VIAL SUBQ SCH ×4 (07:48→21:55)
[2021-08-20] MEDS: Aspirin Enteric Coated 325 MG Tablet PO SCH (08:32)
[2021-08-20] MEDS: metroNIDAZOLE 500 MG TABLET PO SCH ×3 (08:33→21:54)
[2021-08-20] MEDS: Ascorbic Acid 500 MG TABLET PO SCH (08:33)
[2021-08-20] MEDS: hydrALAZINE 25 MG TABLET PO SCH ×3 (08:34→21:54)
[2021-08-20] MEDS: Renal Vitamin 1 CAP CAPSULE PO SCH (08:34)
[2021-08-20] MEDS: Loratadine 10 MG TABLET PO SCH (08:34)
[2021-08-20] MEDS: Folic Acid 1 MG TABLET PO SCH ×2 (08:34→21:54)
[2021-08-20] MEDS: Insulin DETEMIR 100 UNIT/ML X5UNITS SUBQ SCH ×2 (09:15→21:54)
[2021-08-20] MEDS: Melatonin 3 MG TABLET PO SCH (21:54)
[2021-08-20] MEDS: SODIUM ZIRCONIUM CYCLOSILICATE 5 GM POWD.PACK PO SCH (22:06)
[2021-08-21] MEDS: *HR* Heparin 5,000 UNIT/ML VIAL SQ SCH ×2 (06:38→17:20)
[2021-08-21] MEDS: Insulin LISPRO 300 UNITS/3 ML VIAL SUBQ SCH ×4 (07:11→20:45)
[2021-08-21] MEDS: Renal Vitamin 1 CAP CAPSULE PO SCH (09:09)
[2021-08-21] MEDS: Loratadine 10 MG TABLET PO SCH (09:09)
[2021-08-21] MEDS: Folic Acid 1 MG TABLET PO SCH ×2 (09:09→20:44)
[2021-08-21] MEDS: Ascorbic Acid 500 MG TABLET PO SCH (09:10)
[2021-08-21] MEDS: metroNIDAZOLE 500 MG TABLET PO SCH ×3 (09:10→20:44)
[2021-08-21] MEDS: hydrALAZINE 25 MG TABLET PO SCH ×3 (09:10→20:44)
[2021-08-21] MEDS: Aspirin Enteric Coated 325 MG Tablet PO SCH (09:10)
[2021-08-21] MEDS: SODIUM ZIRCONIUM CYCLOSILICATE 5 GM POWD.PACK PO SCH ×2 (09:11→20:44)
[2021-08-21] MEDS: Furosemide 40 MG TABLET PO SCH (09:20)
[2021-08-21] MEDS: Insulin DETEMIR 100 UNIT/ML X5UNITS SUBQ SCH ×2 (09:22→20:45)
[2021-08-21] MEDS: Melatonin 3 MG TABLET PO SCH (20:45)
[2021-08-21] MEDS: Acetaminophen 325 MG TABLET PO PRN (20:50)
[2021-08-22] MEDS: *HR* Heparin 5,000 UNIT/ML VIAL SQ SCH ×2 (06:25→17:03)
[2021-08-22] MEDS: Insulin LISPRO 300 UNITS/3 ML VIAL SUBQ SCH ×4 (07:13→22:00)
[2021-08-22] MEDS: Ascorbic Acid 500 MG TABLET PO SCH (08:49)
[2021-08-22] MEDS: Aspirin Enteric Coated 325 MG Tablet PO SCH (08:49)
[2021-08-22] MEDS: Renal Vitamin 1 CAP CAPSULE PO SCH (08:49)
[2021-08-22] MEDS: hydrALAZINE 25 MG TABLET PO SCH ×3 (08:50→22:11)
[2021-08-22] MEDS: Folic Acid 1 MG TABLET PO SCH ×2 (08:50→22:10)
[2021-08-22] MEDS: Loratadine 10 MG TABLET PO SCH (08:50)
[2021-08-22] MEDS: metroNIDAZOLE 500 MG TABLET PO SCH ×3 (08:50→22:10)
[2021-08-22] MEDS: SODIUM ZIRCONIUM CYCLOSILICATE 5 GM POWD.PACK PO SCH ×2 (08:51→22:09)
[2021-08-22] MEDS: Insulin DETEMIR 100 UNIT/ML X5UNITS SUBQ SCH ×2 (08:52→22:14)
[2021-08-22] MEDS: Furosemide 40 MG TABLET PO SCH (09:00)
[2021-08-22] MEDS: Melatonin 3 MG TABLET PO SCH (22:10)
[2021-08-23] MEDS: Acetaminophen 325 MG TABLET PO PRN (01:49)
[2021-08-23] MEDS: *HR* Heparin 5,000 UNIT/ML VIAL SQ SCH ×2 (05:51→18:11)
[2021-08-23] MEDS: Insulin LISPRO 300 UNITS/3 ML VIAL SUBQ SCH ×4 (08:54→20:32)
[2021-08-23] MEDS: metroNIDAZOLE 500 MG TABLET PO SCH ×3 (09:16→20:31)
[2021-08-23] MEDS: Aspirin Enteric Coated 325 MG Tablet PO SCH (09:17)
[2021-08-23] MEDS: Renal Vitamin 1 CAP CAPSULE PO SCH (09:17)
[2021-08-23] MEDS: SODIUM ZIRCONIUM CYCLOSILICATE 5 GM POWD.PACK PO SCH (09:17)
[2021-08-23] MEDS: Loratadine 10 MG TABLET PO SCH (09:17)
[2021-08-23] MEDS: hydrALAZINE 25 MG TABLET PO SCH ×3 (09:18→20:38)
[2021-08-23] MEDS: Folic Acid 1 MG TABLET PO SCH ×2 (09:18→20:31)
[2021-08-23] MEDS: Ascorbic Acid 500 MG TABLET PO SCH (09:18)
[2021-08-23] MEDS: Insulin DETEMIR 100 UNIT/ML X5UNITS SUBQ SCH ×2 (09:38→20:32)
[2021-08-23] MEDS: Melatonin 3 MG TABLET PO SCH (20:37)
[2021-08-24] MEDS: *HR* Heparin 5,000 UNIT/ML VIAL SQ SCH (06:07)
[2021-08-24 08:41] VITALS: BP 185/76; PULSE 74; RESP 18; TEMP 97.6; O2SAT 99
[2021-08-24] MEDS: hydrALAZINE 25 MG TABLET PO SCH (08:56)
[2021-08-24] MEDS: Loratadine 10 MG TABLET PO SCH (08:57)
[2021-08-24] MEDS: Ascorbic Acid 500 MG TABLET PO SCH (08:57)
[2021-08-24] MEDS: Folic Acid 1 MG TABLET PO SCH (08:57)
[2021-08-24] MEDS: Renal Vitamin 1 CAP CAPSULE PO SCH (08:57)
[2021-08-24] MEDS: Aspirin Enteric Coated 325 MG Tablet PO SCH (08:57)
[2021-08-24] MEDS ORDERED: SODIUM ZIRCONIUM CYCLOSILICATE 5 GM POWD.PACK PO SCH (09:00)
[2021-08-24] MEDS: Furosemide 40 MG TABLET PO SCH (09:07)
[2021-08-24] MEDS: Insulin DETEMIR 100 UNIT/ML X5UNITS SUBQ SCH (09:08)
[2021-08-24] MEDS: Insulin LISPRO 300 UNITS/3 ML VIAL SUBQ SCH ×2 (09:13→12:14)
== END 2021-08-24 12:57 | disposition home health service (06) | DRG 638 ==
LOC: INPPIK 21:00 → SUATTDRO 21:00 → INPPIK 07-21 19:03
PROVIDERS: ADMIT Internal Medicine; ATTEND Family Medicine

== ENCOUNTER 2021-11-08 11:51 | Inpatient (IN) ==
[2021-11-08] MEDS ORDERED: Ondansetron ODT 4 MG TAB.RAPDIS SL PRN (17:39)
[2021-11-08] MEDS ORDERED: Naloxone 0.4 MG/ML INJ IVP PRN (17:39)
[2021-11-08] MEDS ORDERED: Fluticasone Propionate Nasal 50 MCG/SPRAY BOTTLE NS PRN (17:40)
[2021-11-08] MEDS ORDERED: Insulin DETEMIR 100 UNIT/ML per UNIT SUBQ ONE (21:00)
[2021-11-08] MEDS: Melatonin 3 MG TABLET PO PRN (21:20)
[2021-11-08] MEDS: Vitamin B Complex/Vit C/Vit E 1 EACH TABLET PO SCH (21:20)
[2021-11-08] MEDS: *HR* Heparin 5,000 UNIT/ML VIAL SQ SCH (21:20)
[2021-11-09] MEDS: *HR* Heparin 5,000 UNIT/ML VIAL SQ SCH ×3 (06:54→20:58)
[2021-11-09] MEDS ORDERED: *HR* Dextrose 50 % in Water (Syg) 50 ML SYRINGE IVP PRN (07:32)
[2021-11-09] MEDS ORDERED: D5% in Water 1,000 ML IVC PRN (07:32)
[2021-11-09] MEDS ORDERED: Dextrose Gel 15 GM/37.5 ML TUBE PO PRN ×2 (07:32)
[2021-11-09] MEDS: Vitamin B Complex/Vit C/Vit E 1 EACH TABLET PO SCH ×2 (09:06→20:30)
[2021-11-09] MEDS: Renal Vitamin 1 CAP CAPSULE PO SCH (09:06)
[2021-11-09] MEDS: Psyllium 1 PACKET POWD.PACK PO SCH (09:06)
[2021-11-09] MEDS: NIFEdipine XL (24 HR) 30 MG TAB.ER.24 PO SCH (09:06)
[2021-11-09] MEDS: Loratadine 10 MG TABLET PO SCH (09:07)
[2021-11-09] MEDS: hydrALAZINE 25 MG TABLET PO SCH (09:17)
[2021-11-09] MEDS: Furosemide 40 MG TABLET PO SCH (09:17)
[2021-11-09 09:25] LABS: Basophils % 0.5 %; Eosinophils # 0.4 K/mcL (0.0-0.6); Eosinophils % 5.4 %; Hematocrit 31.7 % (37.5-50.1); Hemoglobin 10.3 g/dL (12.9-16.9); Immature Granulocytes % 0.4 % (0-4); Lymphocytes # 1.8 K/mcL (0.6-4.6); Lymphocytes % 24.8 %; Mean Corpuscular HGB Conc 32.5 g/dL (31.6-35.5); Mean Corpuscular Volume 95.5 fL (83.0-100.0); Mean Platelet Volume 9.6 fL (9.4-12.4); Monocytes # 0.6 K/mcL (0.0-1.3); Neutrophils # 4.5 K/mcL (1.6-8.9); Platelet Count 236 K/mcL (140-400); Red Blood Count 3.32 M/mcL (4.19-5.50); Red Cell Distribution Width 12.5 % (11.5-14.5); Segmented Neutrophils % 60.9 %; White Blood Count 7.4 K/mcL (4.3-11.1)
[2021-11-09 09:45] LABS: Calcium 8.8 mg/dL (8.6-10.3); Potassium 4.9 mEq/L (3.5-5.1)
[2021-11-09] MEDS: Insulin LISPRO 300 UNITS/3 ML VIAL SUBQ SCH ×3 (11:46→20:31)
[2021-11-09] MEDS ORDERED: Acetaminophen 325 MG TABLET PO PRN (11:55)
[2021-11-09] MEDS: Melatonin 3 MG TABLET PO PRN (20:29)
[2021-11-09] MEDS: Insulin DETEMIR 100 UNIT/ML X5UNITS SUBQ SCH (20:30)
[2021-11-10] MEDS: *HR* Heparin 5,000 UNIT/ML VIAL SQ SCH ×3 (04:36→22:10)
[2021-11-10] MEDS: Insulin LISPRO 300 UNITS/3 ML VIAL SUBQ SCH ×4 (08:10→22:23)
[2021-11-10] MEDS: Loratadine 10 MG TABLET PO SCH (08:23)
[2021-11-10] MEDS: Renal Vitamin 1 CAP CAPSULE PO SCH (08:23)
[2021-11-10] MEDS: Vitamin B Complex/Vit C/Vit E 1 EACH TABLET PO SCH ×2 (08:24→22:10)
[2021-11-10] MEDS: NIFEdipine XL (24 HR) 30 MG TAB.ER.24 PO SCH (08:24)
[2021-11-10] MEDS: Psyllium 1 PACKET POWD.PACK PO SCH (08:24)
[2021-11-10] MEDS ORDERED: *HR* Labetalol 20 MG/4 ML SYRINGE IVP ONE (12:57)
[2021-11-10] MEDS: Insulin DETEMIR 100 UNIT/ML X5UNITS SUBQ SCH (22:10)
[2021-11-11] MEDS: *HR* Heparin 5,000 UNIT/ML VIAL SQ SCH ×3 (06:10→23:53)
[2021-11-11] MEDS: Loratadine 10 MG TABLET PO SCH (09:31)
[2021-11-11] MEDS: Insulin LISPRO 300 UNITS/3 ML VIAL SUBQ SCH ×4 (09:31→23:53)
[2021-11-11] MEDS: Psyllium 1 PACKET POWD.PACK PO SCH (09:31)
[2021-11-11] MEDS: Renal Vitamin 1 CAP CAPSULE PO SCH (09:31)
[2021-11-11] MEDS: NIFEdipine XL (24 HR) 30 MG TAB.ER.24 PO SCH (09:32)
[2021-11-11] MEDS: hydrALAZINE 25 MG TABLET PO SCH (09:32)
[2021-11-11] MEDS: Vitamin B Complex/Vit C/Vit E 1 EACH TABLET PO SCH ×2 (09:32→23:50)
[2021-11-11] MEDS: Furosemide 40 MG TABLET PO SCH (09:32)
[2021-11-11] MEDS: Melatonin 3 MG TABLET PO PRN (23:51)
[2021-11-11] MEDS: Insulin DETEMIR 100 UNIT/ML X5UNITS SUBQ SCH (23:55)
[2021-11-12] MEDS: *HR* Heparin 5,000 UNIT/ML VIAL SQ SCH ×3 (06:58→23:28)
[2021-11-12 07:11] LABS: Basophils # 0.1 K/mcL (0.0-0.2); Basophils % 0.7 %; Eosinophils # 0.4 K/mcL (0.0-0.6); Eosinophils % 5.4 %; Hematocrit 30.6 % (37.5-50.1); Immature Granulocytes % 0.4 % (0-4); Lymphocytes # 1.9 K/mcL (0.6-4.6); Lymphocytes % 26.6 %; Mean Corpuscular HGB Conc 32.7 g/dL (31.6-35.5); Mean Corpuscular Hemoglobin 31.3 pg (28.0-33.3); Mean Corpuscular Volume 95.6 fL (83.0-100.0); Mean Platelet Volume 9.8 fL (9.4-12.4); Monocytes # 0.8 K/mcL (0.0-1.3); Neutrophils # 4.1 K/mcL (1.6-8.9); Platelet Count 234 K/mcL (140-400); Red Cell Distribution Width 12.7 % (11.5-14.5); Segmented Neutrophils % 55.9 %; White Blood Count 7.3 K/mcL (4.3-11.1)
[2021-11-12 07:25] LABS: Potassium 4.8 mEq/L (3.5-5.1)
[2021-11-12] MEDS: Insulin LISPRO 300 UNITS/3 ML VIAL SUBQ SCH ×4 (08:30→23:29)
[2021-11-12] MEDS: NIFEdipine XL (24 HR) 30 MG TAB.ER.24 PO SCH (09:06)
[2021-11-12] MEDS: Loratadine 10 MG TABLET PO SCH (09:06)
[2021-11-12] MEDS: Vitamin B Complex/Vit C/Vit E 1 EACH TABLET PO SCH ×2 (09:06→23:27)
[2021-11-12] MEDS: Psyllium 1 PACKET POWD.PACK PO SCH (09:06)
[2021-11-12] MEDS: Renal Vitamin 1 CAP CAPSULE PO SCH (09:06)
[2021-11-12] MEDS: Aspirin 81 MG TAB.CHEW PO SCH (09:06)
[2021-11-12] MEDS: Melatonin 3 MG TABLET PO PRN (23:27)
[2021-11-12] MEDS: Benzonatate 100 MG CAPSULE PO PRN (23:27)
[2021-11-12] MEDS: Insulin DETEMIR 100 UNIT/ML X5UNITS SUBQ SCH (23:29)
[2021-11-13] MEDS: *HR* Heparin 5,000 UNIT/ML VIAL SQ SCH ×3 (06:51→23:48)
[2021-11-13] MEDS: Insulin LISPRO 300 UNITS/3 ML VIAL SUBQ SCH ×4 (08:34→23:53)
[2021-11-13] MEDS: Vitamin B Complex/Vit C/Vit E 1 EACH TABLET PO SCH ×2 (08:35→23:48)
[2021-11-13] MEDS: Renal Vitamin 1 CAP CAPSULE PO SCH (08:35)
[2021-11-13] MEDS: NIFEdipine XL (24 HR) 30 MG TAB.ER.24 PO SCH (08:35)
[2021-11-13] MEDS: Aspirin 81 MG TAB.CHEW PO SCH (08:35)
[2021-11-13] MEDS: Loratadine 10 MG TABLET PO SCH (08:35)
[2021-11-13] MEDS: Psyllium 1 PACKET POWD.PACK PO SCH (08:36)
[2021-11-13] MEDS: hydrALAZINE 25 MG TABLET PO SCH (11:24)
[2021-11-13] MEDS: Furosemide 40 MG TABLET PO SCH (11:24)
[2021-11-13] MEDS: Benzonatate 100 MG CAPSULE PO PRN (23:47)
[2021-11-13] MEDS: Melatonin 3 MG TABLET PO PRN (23:47)
[2021-11-13] MEDS: Insulin DETEMIR 100 UNIT/ML X5UNITS SUBQ SCH (23:48)
[2021-11-14] MEDS: *HR* Heparin 5,000 UNIT/ML VIAL SQ SCH ×3 (06:40→21:17)
[2021-11-14] MEDS: Loratadine 10 MG TABLET PO SCH (08:51)
[2021-11-14] MEDS: Vitamin B Complex/Vit C/Vit E 1 EACH TABLET PO SCH ×2 (08:51→21:17)
[2021-11-14] MEDS: Insulin LISPRO 300 UNITS/3 ML VIAL SUBQ SCH ×4 (08:51→21:18)
[2021-11-14] MEDS: Aspirin 81 MG TAB.CHEW PO SCH (08:52)
[2021-11-14] MEDS: NIFEdipine XL (24 HR) 30 MG TAB.ER.24 PO SCH (08:52)
[2021-11-14] MEDS: Furosemide 40 MG TABLET PO SCH (08:52)
[2021-11-14] MEDS: hydrALAZINE 25 MG TABLET PO SCH (08:53)
[2021-11-14] MEDS: Renal Vitamin 1 CAP CAPSULE PO SCH (08:53)
[2021-11-14] MEDS: Psyllium 1 PACKET POWD.PACK PO SCH (08:53)
[2021-11-14] MEDS: Insulin DETEMIR 100 UNIT/ML X5UNITS SUBQ SCH (21:18)
[2021-11-15] MEDS: *HR* Heparin 5,000 UNIT/ML VIAL SQ SCH ×3 (05:28→22:07)
[2021-11-15] MEDS: Vitamin B Complex/Vit C/Vit E 1 EACH TABLET PO SCH ×2 (08:12→22:07)
[2021-11-15] MEDS: NIFEdipine XL (24 HR) 30 MG TAB.ER.24 PO SCH (08:12)
[2021-11-15] MEDS: Insulin LISPRO 300 UNITS/3 ML VIAL SUBQ SCH ×5 (08:12→22:06)
[2021-11-15] MEDS: Loratadine 10 MG TABLET PO SCH (08:13)
[2021-11-15] MEDS: hydrALAZINE 25 MG TABLET PO PRN (08:13)
[2021-11-15] MEDS: Renal Vitamin 1 CAP CAPSULE PO SCH (08:13)
[2021-11-15] MEDS: Psyllium 1 PACKET POWD.PACK PO SCH (08:13)
[2021-11-15] MEDS: Aspirin 81 MG TAB.CHEW PO SCH (08:13)
[2021-11-15] MEDS: Insulin DETEMIR 100 UNIT/ML X5UNITS SUBQ SCH (22:07)
[2021-11-16] MEDS: *HR* Heparin 5,000 UNIT/ML VIAL SQ SCH ×3 (05:26→21:49)
[2021-11-16] MEDS: Insulin LISPRO 300 UNITS/3 ML VIAL SUBQ SCH ×4 (07:36→21:49)
[2021-11-16] MEDS: Renal Vitamin 1 CAP CAPSULE PO SCH (10:33)
[2021-11-16] MEDS: Aspirin 81 MG TAB.CHEW PO SCH (10:33)
[2021-11-16] MEDS: Vitamin B Complex/Vit C/Vit E 1 EACH TABLET PO SCH ×2 (10:34→21:52)
[2021-11-16] MEDS: Loratadine 10 MG TABLET PO SCH (10:34)
[2021-11-16] MEDS: hydrALAZINE 25 MG TABLET PO SCH (10:36)
[2021-11-16] MEDS: Psyllium 1 PACKET POWD.PACK PO SCH (10:36)
[2021-11-16] MEDS: Furosemide 40 MG TABLET PO SCH (10:44)
[2021-11-16] MEDS: NIFEdipine XL (24 HR) 30 MG TAB.ER.24 PO SCH (10:44)
[2021-11-16] MEDS: Insulin DETEMIR 100 UNIT/ML X5UNITS SUBQ SCH (21:49)
[2021-11-17] MEDS: *HR* Heparin 5,000 UNIT/ML VIAL SQ SCH ×3 (05:32→21:14)
[2021-11-17] MEDS: Renal Vitamin 1 CAP CAPSULE PO SCH (08:40)
[2021-11-17] MEDS: Aspirin 81 MG TAB.CHEW PO SCH (08:40)
[2021-11-17] MEDS: Vitamin B Complex/Vit C/Vit E 1 EACH TABLET PO SCH ×2 (08:40→21:13)
[2021-11-17] MEDS: Loratadine 10 MG TABLET PO SCH (08:40)
[2021-11-17] MEDS: Psyllium 1 PACKET POWD.PACK PO SCH (08:41)
[2021-11-17] MEDS: Insulin LISPRO 300 UNITS/3 ML VIAL SUBQ SCH ×4 (08:41→21:07)
[2021-11-17] MEDS: NIFEdipine XL (24 HR) 30 MG TAB.ER.24 PO SCH (16:20)
[2021-11-17] MEDS: Insulin DETEMIR 100 UNIT/ML X5UNITS SUBQ SCH (21:11)
[2021-11-17] MEDS: hydrALAZINE 25 MG TABLET PO PRN (21:13)
[2021-11-17] MEDS: Melatonin 3 MG TABLET PO PRN (21:13)
[2021-11-18] MEDS: *HR* Heparin 5,000 UNIT/ML VIAL SQ SCH (05:21)
[2021-11-18 06:29] VITALS: BP 144/66; PULSE 63; RESP 18; TEMP 98
[2021-11-18 09:04] VITALS: O2SAT 95
[2021-11-18] MEDS: hydrALAZINE 25 MG TABLET PO SCH (09:04)
[2021-11-18] MEDS: Aspirin 81 MG TAB.CHEW PO SCH (09:04)
[2021-11-18] MEDS: Loratadine 10 MG TABLET PO SCH (09:04)
[2021-11-18] MEDS: Renal Vitamin 1 CAP CAPSULE PO SCH (09:04)
[2021-11-18] MEDS: Vitamin B Complex/Vit C/Vit E 1 EACH TABLET PO SCH (09:04)
[2021-11-18] MEDS: NIFEdipine XL (24 HR) 30 MG TAB.ER.24 PO SCH (09:04)
[2021-11-18] MEDS: Psyllium 1 PACKET POWD.PACK PO SCH (09:05)
[2021-11-18] MEDS: Insulin LISPRO 300 UNITS/3 ML VIAL SUBQ SCH ×2 (09:05→12:04)
[2021-11-18] MEDS: Furosemide 40 MG TABLET PO SCH (09:12)
== END 2021-11-18 13:46 | disposition home health service (06) | DRG 177 ==
LOC: INPPIK 17:33
PROVIDERS: ADMIT Family Medicine; ATTEND Family Medicine